=== PATIENT | female | born 1970 ===

== ENCOUNTER 2017-01-18 11:00 | Emergency (ER) | payer OTHER ==
[2017-01-18 11:01] VITALS: BMI 43.0
[2017-01-18 11:13] VITALS: RESP 18; O2SAT 100
--- NOTE | 2017-01-18 11:27 | ED PDOC ---
Arrival/HPI - General Chief Complaint: Lower Extremity Problem/Injury Time Seen by Provider: 01/18/17 11:16 Historian: Patient - History of Present Illness Narrative History of Present Illness (Text): 01/18/17 11:16 46 y/o female, pmh including hyperlipidemia, allergic to percocet, c/o lt. leg pain started again today. Pt. stated that she has chronic lt. knee and leg pain , more painful on the lt. knee/calf today, no numbness or tingling, no fever or chills, no headache or night sweat, no numbness or tingling, no other medical or psychological complaints. Past Medical History - Provider Review Nursing Documentation Reviewed: Yes - Tetanus Immunization Tetanus Immunization: Unknown - Past Medical History Past Medical History: No Previous - Cardiac Hx Peripheral Edema: Yes (06-29-13) - Pulmonary Hx Respiratory Disorders: No - Neurological Hx Transient Ischemic Attacks (TIA): Yes (2012) - HEENT Hx HEENT Disorder: (WEARS RX reading GLASSES) - Musculoskeletal/Rheumatological Other/Comment: Knee pain - Gastrointestinal Hx Gastrointestinal Disorders: Yes Hx Gall Bladder Disease: Yes (CHOLECYSTECTOMY) - Genitourinary/Gynecological Hx Genitourinary Disorders: Yes (CEASEREAN SECTION X 1,LUMPS TO BILATERAL BREAST ) - Psychiatric Hx Depression: No Hx Emotional Abuse: No Hx Physical Abuse: No Hx Substance Use: No - Surgical History Hx Section: Yes Hx Cholecystectomy: Yes - Anesthesia Hx Anesthesia: Yes Hx Anesthesia Reactions: No Hx Malignant Hyperthermia: No - Suicidal Assessment Feels Threatened In Home Enviroment: No Family/Social History - Physician Review Nursing Documentation Reviewed: Yes Family/Social History: Unknown Family HX Smoking Status: Never Smoked Hx Alcohol Use: No Hx Substance Use: No Hx Substance Use Treatment: No Allergies/Home Meds Allergies/Adverse Reactions: Allergies acetaminophen [From Percocet] Adverse Reaction (Verified 01/18/17 11:09) RASH oxycodone [From Percocet] Adverse Reaction (Verified 01/18/17 11:09) RASH Home Medications: Home Meds Medication Instructions Recorded Confirmed Amoxicillin/Clavulanate [Augmentin 1 tab PO BID 01/18/17 01/18/17 875 MG-125 MG Tab] Ergocalciferol (Vitamin D2) 2,000 unit PO DAILY 06/11/17 06/11/17 [Vitamin D2] Fenofibrate [Tricor] 145 mg PO QPM 01/18/17 01/18/17 Pregabalin [Lyrica] 50 mg PO HS 01/18/17 01/18/17 Review of Systems - Review of Systems Constitutional: absent: Fatigue, Fevers Eyes: absent: Vision Changes ENT: absent: Hearing Changes Respiratory: absent: SOB, Cough Cardiovascular: absent: Chest Pain Gastrointestinal: absent: Abdominal Pain, Nausea, Vomiting Musculoskeletal: Arthralgias. absent: Back Pain, Neck Pain, Joint Swelling Skin: absent: Rash, Pruritis, Skin Lesions Psychiatric: absent: Anxiety, Depression, Suicidal Ideation Physical Exam Vital Signs Reviewed: Yes Vital Signs Temp Pulse Resp BP Pulse Ox 01/18/17 12:24 98.0 F 79 18 110/69 100 01/18/17 11:12 98.3 F 86 18 112/74 100 Temperature: Afebrile Blood Pressure: Normal Pulse: Regular Respiratory Rate: Normal Appearance: Positive for: Well-Appearing, Non-Toxic, Comfortable Pain Distress: None Mental Status: Positive for: Alert and Oriented X 3 - Systems Exam Head: Present: Atraumatic, Normocephalic Pupils: Present: PERRL Extroacular Muscles: Present: EOMI Conjunctiva: Present: Normal Mouth: Present: Moist Mucous Membranes Neck: Present: Normal Range of Motion Respiratory/Chest: Present: Clear to Auscultation, Good Air Exchange. No: Respiratory Distress, Accessory Muscle Use Cardiovascular: Present: Regular Rate and Rhythm, Normal S1, S2. No: Murmurs Abdomen: Present: Normal Bowel Sounds. No: Tenderness, Distention, Peritoneal Signs Back: Present: Normal Inspection, Other (Thoracic to LS spine: no midline tenderness or step off, FROM without limitation, sensation intact, motor 5/5, ) . No: CVA Tenderness, Midline Tenderness, Paraspinal Tenderness, Pain with Leg Raise, Decubitus Ulcer Upper Extremity: Present: Normal Inspection. No: Cyanosis, Edema Lower Extremity: Present: Normal Inspection, Other (LLE: +ttp on the posterior knee and calf region, no erythematous or insect bite, FROM without limitation, sensation intact, motor 5/5, +DPPT pulses, capillary refill< 2 seconds, neurovascular intact. ). No: Edema Neurological: Present: GCS=15, CN II-XII Intact, Speech Normal Skin: Present: Warm, Dry, Normal Color. No: Rashes Psychiatric: Present: Alert, Oriented x 3, Normal Insight, Normal Concentration Medical Decision Making ED Course and Treatment: 01/18/17 11:34 -toradol IM -LLE venuous doppler show no DVT/cyst -Lt. knee xray: +degnerative changes, no fracture or dislocation -Lonny wrap applied with neurovascular intact -Discharge home with celebrex, lonny wrap, crutches, bed rest, follow up with your own pmd and orthopedic within 2 days, return to the ER for any new or worsening signs or symptoms. - RAD Interpretation Radiology Orders: 01/18/17 11:28 DUPLEX LOWER EXTRM VEIN LEFT [US] Stat 01/18/17 11:29 KNEE WITH PATELLA LEFT 3 VIEW [RAD] Stat Lt. knee xray: no acute findings. LLE Venuous Doppler: as per preliminary report, there is no acute DVT [employer]er: Radiologist - Medication Orders Current Medication Orders: Discontinued Medications Diazepam (Valium) 5 mg PO ONCE ONE PRN Reason: Protocol Stop: 01/18/17 11:29 Last Admin: 01/18/17 12:30 Dose: 5 mg Ketorolac Tromethamine (Toradol) 60 mg IM STAT STA Stop: 01/18/17 11:29 Last Admin: 01/18/17 12:30 Dose: 60 mg - PA / HOPPER FILLER / Resident Statement / has reviewed & agrees with the documentation as recorded. Disposition/Present on Arrival - Present on Arrival Any Indicators Present on Arrival: No History of DVT/PE: No History of Uncontrolled Diabetes: No Urinary Catheter: No History of Decub. Ulcer: No History Surgical Site Infection Following: None - Disposition Have Diagnosis and Disposition been Completed?: Yes Diagnosis: Knee pain, Leg pain, Osteoarthritis Disposition: HOME/ ROUTINE Disposition Time: 11:36 Patient Plan: Discharge Condition: GOOD Additional Instructions: Discharge home with celebrex, lonny wrap, crutches, bed rest, follow up with your own pmd and orthopedic within 2 days, return to the ER for any new or worsening signs or symptoms. Prescriptions: Celecoxib [CeleBREX] 200 mg PO DAILY PRN #14 cap PRN Reason: Other Referrals: Trisha Ibrahim DO [Primary Care Provider] - Follow up with primary Hussein Del Cid MD [Staff Provider] - Follow up with primary Forms: WORK NOTE
[2017-01-18 12:24] VITALS: BP 110/69; PULSE 79; TEMP 98
--- NOTE | 2017-01-18 12:37 | RAD ---
PROCEDURE: Left Knee Radiographs. HISTORY: Pain. No history of recent/ related trauma provided COMPARISON: None. FINDINGS: BONES: No acute fracture. JOINTS: Mild Medial compartment narrowing. JOINT EFFUSION: None. OTHER FINDINGS: None. IMPRESSION: No acute findings related to/accounting for the clinical presentation. Concordant results with the preliminary interpretation rendered by the emergency department physician procedure.
--- NOTE | 2017-01-18 13:28 | US ---
PROCEDURE: Left lower extremity venous US HISTORY: Leg pain and swelling. Evaluate for DVT. PHYSICIAN(S): Hunter Hogue MD. TECHNIQUE: Duplex sonography and color-flow Doppler with graded compression were used to evaluate the deep venous system of the left lower extremity. FINDINGS: The visualized deep venous system of the left lower extremity is sonographically normal and compressible. Normal wave forms and augmentation are seen. There is no sonographic evidence for deep venous thrombosis in the visualized segments of the left lower extremity. IMPRESSION: 1. No sonographic evidence for deep venous thrombosis in the visualized segments of the left lower extremity.
== END 2017-01-18 12:43 | disposition home or self-care (01) ==
LOC: ED 11:00
DX: M25.562 Pain in left knee (principal); M79.605 Pain in left leg; M19.90 Unspecified osteoarthritis, unspecified site
CPT/HCPCS: 73562; 93971; 96372; 99284; J1885

== ENCOUNTER 2018-02-21 12:58 | Emergency (ER) | payer OTHER ==
[2018-02-21 13:14] VITALS: RESP 18; O2SAT 99; BMI 41.8
[2018-02-21] MEDS ORDERED: HYDROmorphone 0.5 mg/0.5 ml ISec IM STA (13:41)
--- NOTE | 2018-02-21 13:48 | ED PDOC ---
Arrival/HPI - General Chief Complaint: Back Pain Time Seen by Provider: 02/21/18 13:36 Historian: Patient - History of Present Illness Narrative History of Present Illness (Text): 02/21/18 13:49 47 y/o female, whose PMH includes TIA and peripheral edema, who presents to the emergency department complaining of mid-back that radiates to right thigh. Patient reports having an epidural shot last week and today when exercising, the pain became worse. Patient notes having numbness to the right toe and having an MRI in the past. Patient denies fall, trauma, chest pain, shortness of breath, headache, fever, chills, cough, bowel or bladder incontinence/ retention, saddle anesthesia, paresthesias, focal weakness, sensory deficit, gait dysfunction, hematuria or dysuria. Additionally, she notes taking medication Lyrica and Bai 2 inhibitor, with no significant relief. Symptom Onset: Gradual Symptom Course: Unchanged Activities at Onset: Light Past Medical History - Provider Review Nursing Documentation Reviewed: Yes - Infectious Disease Hx of Infectious Diseases: None - Tetanus Immunization Tetanus Immunization: Unknown - Past Medical History Past Medical History: No Previous - Cardiac Hx Peripheral Edema: Yes (06-29-13) - Pulmonary Hx Respiratory Disorders: No - Neurological Hx Transient Ischemic Attacks (TIA): Yes (2012) - HEENT Hx HEENT Disorder: (WEARS RX reading GLASSES) - Musculoskeletal/Rheumatological Other/Comment: Knee pain - Gastrointestinal Hx Gastrointestinal Disorders: Yes Hx Gall Bladder Disease: Yes (CHOLECYSTECTOMY) - Genitourinary/Gynecological Hx Genitourinary Disorders: Yes (CEASEREAN SECTION X 1,LUMPS TO BILATERAL BREAST ) - Psychiatric Hx Depression: No Hx Emotional Abuse: No Hx Physical Abuse: No Hx Substance Use: No - Surgical History Hx Section: Yes Hx Cholecystectomy: Yes - Anesthesia Hx Anesthesia: Yes Hx Anesthesia Reactions: No Hx Malignant Hyperthermia: No - Suicidal Assessment Feels Threatened In Home Enviroment: No Family/Social History - Physician Review Nursing Documentation Reviewed: Yes Family/Social History: Unknown Family HX Smoking Status: Never Smoked Hx Alcohol Use: No Hx Substance Use: No Hx Substance Use Treatment: No Allergies/Home Meds Allergies/Adverse Reactions: Allergies acetaminophen [From Percocet] Adverse Reaction (Verified 02/21/18 13:14) RASH oxycodone [From Percocet] Adverse Reaction (Verified 02/21/18 13:14) RASH Home Medications: Home Meds Medication Instructions Recorded Confirmed Amoxicillin/Clavulanate [Augmentin 1 tab PO BID 01/18/17 01/18/17 875 MG-125 MG Tab] Ergocalciferol (Vitamin D2) 2,000 unit PO DAILY 01/18/17 01/18/17 [Vitamin D2] Fenofibrate [Tricor] 145 mg PO QPM 01/18/17 01/18/17 Pregabalin [Lyrica] 50 mg PO HS 01/18/17 01/18/17 Review of Systems - Review of Systems Constitutional: absent: Fevers ENT: absent: Sinus Congestion Respiratory: absent: SOB Cardiovascular: absent: Chest Pain Gastrointestinal: absent: Abdominal Pain Genitourinary Female: absent: Dysuria, Hematuria Musculoskeletal: Back Pain (mid back radiating to right thigh ) Neurological: absent: Headache Endocrine: absent: Diaphoresis Hemo/Lymphatic: absent: Adenopathy Physical Exam Vital Signs Reviewed: Yes Vital Signs Temp Pulse Resp BP Pulse Ox 02/21/18 13:08 98.4 F 76 18 131/81 99 Temperature: Afebrile Blood Pressure: Normal Pulse: Regular Respiratory Rate: Normal Appearance: Positive for: Well-Appearing, Non-Toxic, Uncomfortable (mild ). No : Comfortable Pain Distress: None Mental Status: Positive for: Alert and Oriented X 3 - Systems Exam Head: Present: Atraumatic, Normocephalic Pupils: Present: PERRL Extroacular Muscles: Present: EOMI Conjunctiva: Present: Normal Respiratory/Chest: Present: Clear to Auscultation, Good Air Exchange. No: Respiratory Distress, Accessory Muscle Use, Wheezes, Decreased Breath Sounds, Rales, Retracting, Rhonchi Cardiovascular: Present: Regular Rate and Rhythm, Normal S1, S2. No: Murmurs Abdomen: Present: Normal Bowel Sounds. No: Tenderness, Distention, Peritoneal Signs, Rebound, Guarding Back: Present: Midline Tenderness (diffused midline tenderness not on injeciton site and no erythema). No: CVA Tenderness Lower Extremity: Present: Normal Inspection, NORMAL PULSES, Normal ROM, Neurovascularly Intact, Capillary Refill < 2 s, Other (motor strength 5/5). No : Edema, Cyanosis, Pippa's Sign, Tenderness, Swelling, Erythema, Deformity Neurological: Present: GCS=15, CN II-XII Intact, Speech Normal, Motor Func Grossly Intact, Normal Sensory Function, Normal Cerebellar Funct Skin: Present: Warm, Dry, Normal Color. No: Rashes Psychiatric: Present: Alert, Oriented x 3, Normal Insight, Normal Concentration Medical Decision Making ED Course and Treatment: 02/21/18 Impression: 47 y/o female with midline tenderness in back with no erythema on injection site complaining of mid back pain radiating to lower extremities. Plan: -- Dilaudid, Toradol, and Prednisone -- Reassess and disposition Progress Notes: - Medication Orders Current Medication Orders: Discontinued Medications Hydromorphone HCl (Dilaudid) 0.5 mg IM STAT STA Stop: 02/21/18 13:42 Last Admin: 02/21/18 14:13 Dose: 0.5 mg MAR Pain Assessment Document 02/21/18 14:13 LA (Rec: 02/21/18 14:14 [id number] Pain Reassessment Is this a pain reassessment? No Sleep Is patient sleeping during reassessment? No Presence of Pain Presence of Pain Yes Pain Scale Used Pain Scale Used Numeric Location Upper or Lower Lower Pain Location Body Site Back Description Intensity of Pain at present 9 IM Administration Charges Document 02/21/18 14:13 LA (Rec: 02/21/18 14:14 [place] [id number] Injection Site MAR Injection Site Right Arm Charges for Administration # of IM Administrations 1 Ketorolac Tromethamine (Toradol) 30 mg IM STAT STA Stop: 02/21/18 13:42 Last Admin: 02/21/18 14:12 Dose: 30 mg MAR Pain Assessment Document 02/21/18 14:12 LA (Rec: 02/21/18 14:13 LA [id number] Pain Reassessment Is this a pain reassessment? Yes Sleep Is patient sleeping during reassessment? No Presence of Pain Presence of Pain Yes Description Intensity of Pain at present 9 IM Administration Charges Document 02/21/18 14:12 LA (Rec: 02/21/18 14:13 LA [id number] Injection Site MAR Injection Site Left Arm Charges for Administration # of IM Administrations 1 Prednisone (Prednisone Tab) 60 mg PO STAT ONE Stop: 02/21/18 13:43 Last Admin: 02/21/18 14:13 Dose: 60 mg - PA / MEAT PASSER / Resident Statement MD/DO has examined the patient and agrees with the treatment plan. - Scribe Statement The provider has reviewed the documentation as recorded by the Parrish Sal Provider Parrish Attestation: All medical record entries made by the Sylvesteribe were at my direction and personally dictated by me. I have reviewed the chart and agree that the record accurately reflects my personal performance of the history, physical exam, medical decision making, and the department course for this patient. I have also personally directed, reviewed, and agree with the discharge instructions and disposition. Disposition/Present on Arrival - Present on Arrival Any Indicators Present on Arrival: No History of DVT/PE: No History of Uncontrolled Diabetes: No Urinary Catheter: No History of Decub. Ulcer: No History Surgical Site Infection Following: None - Disposition Have Diagnosis and Disposition been Completed?: Yes Diagnosis: Radiculopathy of lumbar region Disposition: HOME/ ROUTINE Disposition Time: 14:38 Patient Plan: Discharge Patient Problems: Current Active Problems Problem Status Onset Radiculopathy of lumbar region Acute Condition: IMPROVED Discharge Instructions (ExitCare): Radiculopathy (DC) Prescriptions: Methylprednisolone [Medrol Dose Pack (21 tabs)] 4 mg PO DAILY #21 mg Referrals: Sara Donaldson MD [Primary Care Provider] - Follow up with primary Forms: [employer] (Cook Islander)
[2018-02-21 15:17] VITALS: BP 120/75; PULSE 73; TEMP 98.5
== END 2018-02-21 15:16 | disposition home or self-care (01) ==
LOC: ED 12:58
DX: M54.16 Radiculopathy, lumbar region (principal)
CPT/HCPCS: 96372; 99283; J1170; J1885

== ENCOUNTER 2018-03-05 19:50 | Emergency (ER) | payer OTHER ==
[2018-03-05 19:50] VITALS: BMI 41.8
--- NOTE | 2018-03-05 20:30 | ED PDOC ---
Arrival/HPI - General Chief Complaint: Hip Pain Time Seen by Provider: 03/05/18 19:58 Historian: Patient - History of Present Illness Narrative History of Present Illness (Text): 03/05/18 20:27 A 47 year old female who presents to the emergency room with a complaint of buttock/lower extremity pain s/p slip and fall this evening. Patient states that she went into a store, slipped on a wet floor and fell backwards onto her buttock and lower back. Patient denies any head or neck trauma. She notes that the pain radiates down both lower extremities. The patient denies fevers, chills , headache, dizziness, sore throat, cough, chest pain, shortness of breath, dyspnea on exertion, abdominal pain, nausea, vomiting, diarrhea, neck pain, urinary/bowel changes or any other complaint. Time/Duration: Prior to Arrival Symptom Onset: Sudden Symptom Course: Unchanged Activities at Onset: Rest, Light Context: Other (Store) Associated Symptoms (Text): 03/05/18 21:32 Slip and fall backwards on a wet floor in a store just prior to arrival injuring her buttocks and lower back. No head trauma. Pain appears to be out of proportion to her injuries on exam. Past Medical History - Provider Review Nursing Documentation Reviewed: Yes - Infectious Disease Hx of Infectious Diseases: None - Tetanus Immunization Tetanus Immunization: Unknown - Past Medical History Past Medical History: No Previous - Cardiac Hx Cardiac Disorders: Yes Hx Peripheral Edema: Yes - Pulmonary Hx Respiratory Disorders: No - Neurological Hx Neurological Disorder: Yes Hx Transient Ischemic Attacks (TIA): Yes (2012) - HEENT Hx HEENT Disorder: (WEARS RX reading GLASSES) - Renal Hx Renal Disorder: No - Endocrine/Metabolic Hx Endocrine Disorders: No - Hematological/Oncological Hx Blood Disorders: No - Integumentary Hx Dermatological Disorder: No - Musculoskeletal/Rheumatological Hx Musculoskeletal Disorders: Yes Other/Comment: Knee pain - Gastrointestinal Hx Gastrointestinal Disorders: Yes Hx Gall Bladder Disease: Yes (CHOLECYSTECTOMY) - Genitourinary/Gynecological Hx Genitourinary Disorders: Yes (CEASEREAN SECTION X 1,LUMPS TO BILATERAL BREAST ) - Psychiatric Hx Depression: No Hx Emotional Abuse: No Hx Physical Abuse: No Hx Substance Use: No - Surgical History Hx Section: Yes Hx Cholecystectomy: Yes - Anesthesia Hx Anesthesia: Yes Hx Anesthesia Reactions: No Hx Malignant Hyperthermia: No - Suicidal Assessment Feels Threatened In Home Enviroment: No Family/Social History - Physician Review Nursing Documentation Reviewed: Yes Family/Social History: No Known Family HX Smoking Status: Never Smoked Hx Alcohol Use: No Hx Substance Use: No Hx Substance Use Treatment: No Allergies/Home Meds Allergies/Adverse Reactions: Allergies acetaminophen [From Percocet] Adverse Reaction (Verified 03/05/18 20:06) RASH oxycodone [From Percocet] Adverse Reaction (Verified 03/05/18 20:06) RASH Home Medications: Home Meds Medication Instructions Recorded Confirmed Amoxicillin/Clavulanate [Augmentin 1 tab PO BID 01/18/17 01/18/17 875 MG-125 MG Tab] Ergocalciferol (Vitamin D2) 2,000 unit PO DAILY 01/18/17 01/18/17 [Vitamin D2] Fenofibrate [Tricor] 145 mg PO QPM 01/18/17 01/18/17 Pregabalin [Lyrica] 50 mg PO HS 01/18/17 01/18/17 Review of Systems - Physician Review All systems were reviewed & negative as marked: Yes - Review of Systems Constitutional: absent: Fevers, Night Sweats Respiratory: absent: SOB, Cough Cardiovascular: absent: Chest Pain, LIMA Gastrointestinal: absent: Abdominal Pain, Stool Changes, Diarrhea, Nausea, Vomiting Genitourinary Female: absent: Urine Output Changes Musculoskeletal: Back Pain (Lower back/extremity pain s/p fall). absent: Neck Pain Neurological: absent: Headache, Dizziness Physical Exam Vital Signs Reviewed: Yes Vital Signs Temp Pulse Resp BP Pulse Ox 03/05/18 22:12 98.5 F 68 18 113/69 100 03/05/18 21:34 98.5 F 71 20 114/73 95 03/05/18 20:07 98.5 F 68 19 120/74 98 Temperature: Afebrile Blood Pressure: Normal Pulse: Regular Respiratory Rate: Normal Appearance: Positive for: Non-Toxic, Uncomfortable, Other (Patient crying uncontrollably, obese.) Pain Distress: Severe Mental Status: Positive for: Alert and Oriented X 3 - Systems Exam Head: Present: Atraumatic, Normocephalic Pupils: Present: PERRL Extroacular Muscles: Present: EOMI Conjunctiva: Present: Normal Mouth: Present: Moist Mucous Membranes Neck: Present: Normal Range of Motion. No: MIDLINE TENDERNESS, Paraspinal Tenderness Respiratory/Chest: Present: Clear to Auscultation, Good Air Exchange. No: Respiratory Distress, Accessory Muscle Use Cardiovascular: Present: Regular Rate and Rhythm, Normal S1, S2. No: Murmurs Abdomen: No: Tenderness, Distention, Peritoneal Signs Back: Present: Normal Inspection, Paraspinal Tenderness (Bilateral lumbar paraspinous tenderness. Pain with any range of motion of the lower back or bilateral lower extremities). No: CVA Tenderness, Midline Tenderness Upper Extremity: Present: Normal Inspection. No: Cyanosis, Edema Lower Extremity: Present: Tenderness (Severe pain on palpation of both lower extremities. Severe bilateral lumbar spine and buttock tenderness. No mid/upper back tenderness. ). No: Normal ROM (Severe pain with movement of both lower extremities. ) Neurological: Present: GCS=15, CN II-XII Intact, Speech Normal, Motor Func Grossly Intact Skin: Present: Warm, Dry, Normal Color. No: Rashes Psychiatric: Present: Alert, Oriented x 3, Normal Insight, Normal Concentration Medical Decision Making ED Course and Treatment: 03/05/18 20:32 Impression: A 47 year old female presents to the emergency room complaining of lower extremity pain s/p slip and fall this evening in store. Plan: -- LS Spine and Pelvic X-Ray -- Toradol -- Reassess and disposition Progress Notes: 03/05/18 21:41 Pain mildly improved with Toradol. 03/05/18 21:58 Patient is requesting Tylenol 3 for her pain. - RAD Interpretation Radiology Orders: 03/05/18 20:24 PELVIS ONE VIEW [RAD] Stat 03/05/18 20:25 LS SPINE WITH OBL > 18 YRS OLD [RAD] Stat Pelvis one view shows no fracture or dislocation. Lumbosacral spine 5 views shows no fracture or dislocation. Molder Feeder: ED Physician - Medication Orders Current Medication Orders: Discontinued Medications Ketorolac Tromethamine (Toradol) 60 mg IM ONCE ONE Stop: 03/05/18 20:25 Last Admin: 03/05/18 20:39 Dose: 60 mg BANNER Pain Assessment Document 03/05/18 20:39 LA (Rec: 03/05/18 20:40 LA [id number]) Pain Reassessment Is this a pain reassessment? No Sleep Is patient sleeping during reassessment? No Presence of Pain Presence of Pain Yes Pain Scale Used Pain Scale Used Numeric Location Left, Right or Bilateral Bilateral Pain Location Body Site Hip Description Description Constant Intensity of Pain at present 8 IM Administration Charges Document 03/05/18 20:39 [facility] (Rec: 03/05/18 20:40 LA [id number]) Injection Site MAR Injection Site Left Gluteus Brady Charges for Administration # of IM Administrations 1 - Scribe Statement The provider has reviewed the documentation as recorded by the Scribe Jessica Tran Provider Scribe Attestation: All medical record entries made by the Scribe were at my direction and personally dictated by me. I have reviewed the chart and agree that the record accurately reflects my personal performance of the history, physical exam, medical decision making, and the department course for this patient. I have also personally directed, reviewed, and agree with the discharge instructions and disposition. Disposition/Present on Arrival - Present on Arrival Any Indicators Present on Arrival: No History of DVT/PE: No History of Uncontrolled Diabetes: No Urinary Catheter: No History of Decub. Ulcer: No History Surgical Site Infection Following: None - Disposition Have Diagnosis and Disposition been Completed?: Yes Diagnosis: Chronic back pain, Back contusion, Contusion, buttock Disposition: HOME/ ROUTINE Disposition Time: 21:39 Patient Plan: Discharge Condition: IMPROVED Discharge Instructions (ExitCare): Chronic Pain (DC), Low Back Pain (DC), Contusion (DC) Additional Instructions: Rest and ice. Follow-up with PMD. Follow up in ER as needed. Prescriptions: oxyCODONE/Acetaminophen [Percocet 5/325 mg Tab] 1 ea PO Q6 #15 tab Acetaminophen with Codeine [Tylenol with Codeine #3 Tablet] 1 each PO Q6 #20 tablet Referrals: Sara Donaldson MD [Primary Care Provider] - Follow up with primary Forms: [employer] (Irish)
[2018-03-05 21:35] VITALS: TEMP 98.5
[2018-03-05 22:12] VITALS: BP 113/69; PULSE 68; RESP 18; O2SAT 100
--- NOTE | 2018-03-06 10:22 | RAD ---
Date of service: 03/05/2018 PROCEDURE: Radiographs of the pelvis. HISTORY: trauma COMPARISON: None. FINDINGS: BONES: Pelvic Bones: Unremarkable. Hips: Grossly unremarkable. JOINTS: Sacroiliac Joints: Unremarkable. Pubic Symphysis: Unremarkable. OTHER FINDINGS: None. IMPRESSION: Unremarkable radiographs of the pelvis.
--- NOTE | 2018-03-06 10:23 | RAD ---
Date of service: 03/05/2018 PROCEDURE: Radiographs of the Lumbar Spine. HISTORY: trauma COMPARISON: No prior. FINDINGS: BONES: Normal alignment. No listhesis. No fracture. DISC SPACES: Unremarkable. OTHER FINDINGS: None. IMPRESSION: No acute findings related to/accounting for the clinical presentation.
== END 2018-03-05 22:12 | disposition home or self-care (01) ==
LOC: ED 19:50
DX: S30.0XXA Contusion of lower back and pelvis, initial encounter (principal); W01.0XXA Fall on same level from slipping, tripping and stumbling without subsequent striking against object, initial encounter; Y92.512 Supermarket, store or market as the place of occurrence of the external cause; M54.5 Low back pain; G89.29 Other chronic pain
CPT/HCPCS: 72110; 72170; 96372; 99284; J1885

== ENCOUNTER 2018-09-13 12:17 | Outpatient (CLI) | payer OTHER | END 2018-09-13 12:18 | disposition home or self-care (01) | LOC: RAD 12:17 ==

== ENCOUNTER 2018-10-09 06:20 | Inpatient (IN) | payer OTHER ==
--- NOTE | 2018-10-09 07:32 | ED PDOC ---
Arrival/HPI - General Chief Complaint: Abdominal Pain Time Seen by Provider: 10/09/18 06:58 Historian: Patient - History of Present Illness Narrative History of Present Illness (Text): 10/09/18 07:32 A 48 year old female, whose past medical history includes gastric sleeve surgery (2 weeks ago), presents to the emergency department complaining of LUQ pain starting yesterday. Patient reports 1 hour [employer], she was at the [facility] ER for the abdominal pain (to which she assumed it was caused by heavy lifting), and had CT Abd/Pelvis performed. results showed she has a large pancreatitis, and she was going to be transferred to [facility], however instead she decided to come to [facility] ER. Patient notes also currently experiencing chest pain (starting here upon arrival to the ER), however denies any other complaints at this time. Denies any history of EtOH consumption or smoking. Denies any medical history of diabetes or hypertension. States she only takes medication for her back. Also, patient mentions post-gastric sleeve surgery, she remained in the ICU for observation, as she was told her heart rate is slow. Past Medical History - Provider Review Nursing Documentation Reviewed: Yes - Infectious Disease Hx of Infectious Diseases: None - Tetanus Immunization Tetanus Immunization: Unknown - Past Medical History Past Medical History: No Previous - Cardiac Hx Cardiac Disorders: Yes Hx Peripheral Edema: Yes - Pulmonary Hx Respiratory Disorders: No - Neurological Hx Neurological Disorder: Yes Hx Transient Ischemic Attacks (TIA): Yes (2012) - HEENT Hx HEENT Disorder: (WEARS RX reading GLASSES) - Renal Hx Renal Disorder: No - Endocrine/Metabolic Hx Endocrine Disorders: No - Hematological/Oncological Hx Blood Disorders: No - Integumentary Hx Dermatological Disorder: No - Musculoskeletal/Rheumatological Hx Musculoskeletal Disorders: Yes Other/Comment: Knee pain - Gastrointestinal Hx Gastrointestinal Disorders: Yes Hx Gall Bladder Disease: Yes (CHOLECYSTECTOMY) - Genitourinary/Gynecological Hx Genitourinary Disorders: Yes (CEASEREAN SECTION X 1,LUMPS TO BILATERAL BREAST) - Psychiatric Hx Substance Use: No - Surgical History Hx Section: Yes Hx Cholecystectomy: Yes Other/Comment: gastric sleeve 2 weeks ago - Anesthesia Hx Anesthesia: Yes Hx Anesthesia Reactions: No Hx Malignant Hyperthermia: No - Suicidal Assessment Feels Threatened In Home Enviroment: No Family/Social History - Physician Review Nursing Documentation Reviewed: Yes Family/Social History: No Known Family HX Smoking Status: Never Smoked Hx Alcohol Use: No Hx Substance Use: No Hx Substance Use Treatment: No Allergies/Home Meds Allergies/Adverse Reactions: Allergies gabapentin Allergy (Verified 10/09/18 07:13) RASH acetaminophen [From Percocet] Adverse Reaction (Verified 03/05/18 20:06) RASH oxycodone [From Percocet] Adverse Reaction (Verified 03/05/18 20:06) RASH Home Medications: Home Meds Medication Instructions Recorded Confirmed Amoxicillin/Clavulanate [Augmentin 1 tab PO BID 01/18/17 01/18/17 875 MG-125 MG Tab] Ergocalciferol (Vitamin D2) 2,000 unit PO DAILY 01/18/17 01/18/17 [Vitamin D2] Fenofibrate [Tricor] 145 mg PO QPM 01/18/17 01/18/17 Pregabalin [Lyrica] 50 mg PO HS 01/18/17 01/18/17 Review of Systems - Physician Review All systems were reviewed & negative as marked: Yes - Review of Systems Constitutional: absent: Fevers, Night Sweats Cardiovascular: Chest Pain (began in ER) Gastrointestinal: Abdominal Pain (LUQ region). absent: Diarrhea, Nausea, Vomiting Physical Exam Pain Distress: Mild Mental Status: Positive for: Alert and Oriented X 3 - Systems Exam Head: Present: Atraumatic, Normocephalic Pupils: Present: PERRL Extroacular Muscles: Present: EOMI Conjunctiva: Present: Normal Mouth: Present: Moist Mucous Membranes Respiratory/Chest: Present: Clear to Auscultation, Good Air Exchange. No: Respiratory Distress, Accessory Muscle Use Cardiovascular: Present: Regular Rate and Rhythm, Normal S1, S2. No: Murmurs Abdomen: Present: Tenderness (LUQ region). No: Distention, Peritoneal Signs Upper Extremity: Present: Normal Inspection. No: Cyanosis, Edema Lower Extremity: Present: Normal Inspection. No: Edema Neurological: Present: GCS=15, CN II-XII Intact, Speech Normal Skin: Present: Warm, Dry, Normal Color. No: Rashes Psychiatric: Present: Alert, Oriented x 3, Normal Insight, Normal Concentration Medical Decision Making ED Course and Treatment: 10/09/18 07:32 Impression 48 year old female with LUQ pain since yesterday, and chest pain starting in the ER. Physical exam shows LUQ tenderness. Plan: -- EKG -- Chest X-ray -- Labs -- Reassess and disposition Progress Notes: EKG: Ordered, reviewed, and independently interpreted the EKG. Rate : 48 BPM Rhythm : Sinus bradycardia. Interpretation : No ST-segment elevations or depressions, no T-wave inversions, normal intervals. Comparison : No previous EKG for comparison. 10/09/18 08:00 Case endorsed to /pending labs /CXR/reasses/final disposition - Scribe Statement The provider has reviewed the documentation as recorded by the Scribe Amparo Bermeo Provider Scribe Attestation: All medical record entries made by the Scribe were at my direction and personally dictated by me. I have reviewed the chart and agree that the record accurately reflects my personal performance of the history, physical exam, medical decision making, and the department course for this patient. I have also personally directed, reviewed, and agree with the discharge instructions and disposition. Disposition/Present on Arrival - Present on Arrival Any Indicators Present on Arrival: No History of DVT/PE: No History of Uncontrolled Diabetes: No Urinary Catheter: No History of Decub. Ulcer: No History Surgical Site Infection Following: None - Disposition Have Diagnosis and Disposition been Completed?: No Diagnosis: Abdominal pain, Chest pain Disposition Time: 08:00 Condition: STABLE Discharge Instructions (ExitCare): Chest Pain (ED) Forms: [employer] (Czech)
[2018-10-09] MEDS: Sodium Chloride 0.9% 1,000 ML IV SCH ×2 (07:51→18:04)
[2018-10-09 08:04] LABS: HEMOGLOBIN 11.3 g/dL (12.0-16.0); MEAN CELL VOLUME 86.3 fl (80.0-105.0); MEAN CORPUSCULAR HEMOGLOBIN 27.1 pg (25.0-35.0); MEAN CORPUSCULAR HGB CONC 31.4 g/dl (31.0-37.0); MEAN PLATELET VOLUME 10.9 fl (7.0-11.0); RBC 4.17 {null, 10^6/uL} (3.5-6.1); RED CELL DISTRIBUTION WIDTH 13.8 % (11.5-14.5); WHITE BLOOD COUNT 5.2 {null, 10^3/uL} (4.5-11.0)
[2018-10-09 08:06] LABS: INR 1.15; PARTIAL THROMBOPLASTIN TIME 31.1 Seconds (26.9-38.3)
[2018-10-09 08:09] LABS: ALB/GLOB RATIO 1.2 (1.1-1.8); ALBUMIN 3.4 g/dL (3.0-4.8); ALT/SGPT 68 U/L (7-56); AST/SGOT 67 U/L (14-36); BLOOD UREA NITROGEN 7 mg/dL (7-21); CALCIUM 8.3 mg/dL (8.4-10.5); GFR NON-AFRICAN AMERICAN > 60; LIPASE 812 U/L (23-300)
--- NOTE | 2018-10-09 08:12 | ED PDOC ---
Physical Exam Vital Signs Temp Pulse Resp BP Pulse Ox 10/09/18 06:21 97.9 F 51 L 18 110/61 98 Medical Decision Making ED Course and Treatment: 10/09/18 08:00 Case endorsed to me by Dr. Bello. Patient was transferred from outside facility with report of history of pancreatitis. States 2 weeks ago, patient had gastric sleeve surgery performed. Yesterday afternoon, patient states she developed left-side abdominal pain radiating to chest region after lifting something heavy at home. Pain is constant. Associated with nausea. Went to outside facility at 11:00 PM last night. Reports CT Abd/Pelvis performed and diagnosed with pancreatitis. Current pain has improved after morphine given yesterday from outside facility. Patient is currently resting comfortably here in the ER. Heart rate current 50 BPM and regular rhythm. Patient denies any dizziness/lightheadedness at this time. Currently awaiting CT report to be sent from outside facility. Patient will be admitted to telemetry as pain radiates to chest and is bradycardic. Patient currently not hypotensive. PMD is Dr. Ibrahim. 10/09/18 08:45 CT Abd/Pelvis report faxed from [facility] ER: 10/08/2018 02:18 Abd/Pelvis CT with IV and PO contrast IMPRESSION: 1. No evidence of pancreatic infiltration. Please note that mild peritendinous may not be visible on CT. 2. Mosaic pattern of enhancement of the liver parenchyma. Exact etiology is indeterminate. Potential differental may include transient perfusion anomaly of liver versus hepatic inflammation. Limited assessment of the hepatic veins and portal vein due to multiple mixing of contrast, likely related to bolus timing, but it appear grossly patent. Please correlate with any referable symptoms and liver function test for correspondence. 3. Status post gastric sleeve procedure. No bowel obstruction. Normal appendix. 4. Moderate dilatation of the common bile duct and mild intrahepatic biliary duct dilatation. The degree of biliary ductal dilatation appears mildly greater than expected for post cholecystectomy changes, although it may still represent post surgical change. Correlate with liver function test. Dictator: Richard Calderon 10/09/18 08:50 CT Abd/Pelvis has donna reviewed. Differential Diagnoses includes: Pancreatitis vs. Gastritis vs. Cardiac disease. Due to her complaints of mild left side chest discomfort associated with bradycardia, patient will be admitted to telemetry bed. Will be admitted under hospitalist service. Currently denies any pleuritic pain. No hypoxia. No calf pain/edema. On re-exam, patient comfortable. Denies chest pain. Heart rate if 55. Blood pressure 110/70. No shortness of breath or dizziness. No cough. No rash. Discussed case with covering physician for PMD. Care transferred to hospitalist team at 1015 am. - Lab Interpretations Lab Results: PT 13.0 SECONDS (9.4-12.5) H 10/09/18 07:45 INR 1.15 10/09/18 07:45 APTT 31.1 Seconds (26.9-38.3) 10/09/18 07:45 - RAD Interpretation Radiology Orders: 10/09/18 07:26 CHEST PORTABLE [RAD] Stat - Medication Orders Current Medication Orders: Sodium Chloride (Sodium Chloride 0.9%) 1,000 mls @ 100 mls/hr IV .Q10H FABIAN Last Admin: 10/09/18 07:51 Dose: 100 mls/hr eMAR Start Stop Document 10/09/18 07:51 SRE (Rec: 10/09/18 07:53 SRE [id number]) Intravenous Solution Start Date 10/09/18 Start Time 07:52 - Scribe Statement The provider has reviewed the documentation as recorded by the Parrish Bermeo Provider Scribe Attestation: All medical record entries made by the Scribras were at my direction and personally dictated by me. I have reviewed the chart and agree that the record accurately reflects my personal performance of the history, physical exam, medical decision making, and the department course for this patient. I have also personally directed, reviewed, and agree with the discharge instructions and disposition. Disposition/Present on Arrival - Present on Arrival Any Indicators Present on Arrival: No History of DVT/PE: No History of Uncontrolled Diabetes: No Urinary Catheter: No History of Decub. Ulcer: No History Surgical Site Infection Following: None - Disposition Have Diagnosis and Disposition been Completed?: Yes Diagnosis: Abdominal pain, Chest pain, Pancreatitis, Bradycardia Disposition: HOSPITALIZED Disposition Time: 08:48 Patient Plan: Admission, Telemetry Patient Problems: Current Active Problems Problem Status Onset Abdominal pain Acute Bradycardia Acute Chest pain Acute Pancreatitis Acute Condition: STABLE
[2018-10-09 08:20] LABS: TROPONIN I < 0.01 ng/mL
--- NOTE | 2018-10-09 11:08 | CP.PCM.HP ---
<Lyndsay Werner - Last Filed: 10/09/18 18:49> History of Present Illness - History of Present Illness History of Present Illness: Resident History & Physical for Hospitalist Service Patient is a 48 year old female with past medical history of obesity, hyperlipidemia, and recent gastric bypass surgery 2 weeks ago presenting with chief complaint of left sided abdominal pain which began yesterday morning. She believes the pain may have been related to her carrying heavy objects. Patient states the pain is a constant ache with intermittent sharp exacerbations. Pain i s worsened with positional changes and ambulation. Patient has tried Tylenol with no relief. She states that she follows diet as instructed for gastric bypass patients. Admits to nausea, headache, dizziness, chest discomfort. Denies vomiting, shortness of breath, diarrhea, dysuria. PMH: obesity, hyperlipidemia PSH: gastric bypass, cholecystectomy, x1 SHx: former smoker x26 years, quit 2 years ago, rare alcohol, denies illicit drug use FHx: brother (T2DM, GERD) Allergies: gabapentin, acetaminophen, oxycodone PMD: Dr. Trisha Ibrahim Present on Admission - Present on Admission Any Indicators Present on Admission: No Review of Systems - Review of Systems All systems: reviewed and no additional remarkable complaints except (as stated in HPI) Past Patient History - Infectious Disease Hx of Infectious Diseases: None - Tetanus Immunizations Tetanus Immunization: Unknown - Past Social History Smoking Status: Never Smoked - CARDIAC Hx Cardiac Disorders: Yes Hx Peripheral Edema: Yes - PULMONARY Hx Respiratory Disorders: No - NEUROLOGICAL Hx Neurological Disorder: Yes Hx Transient Ischemic Attacks (TIA): Yes (2012) - HEENT Hx HEENT Problems: (WEARS RX reading GLASSES) - RENAL Hx Chronic Kidney Disease: No - ENDOCRINE/METABOLIC Hx Endocrine Disorders: No - HEMATOLOGICAL/ONCOLOGICAL Hx Blood Disorders: No - INTEGUMENTARY Hx Dermatological Problems: No - MUSCULOSKELETAL/RHEUMATOLOGICAL Hx Musculoskeletal Disorders: Yes Other/Comment: Knee pain - GASTROINTESTINAL Hx Gastrointestinal Disorders: Yes Hx Gall Bladder Disease: Yes (CHOLECYSTECTOMY) - GENITOURINARY/GYNECOLOGICAL Hx Genitourinary Disorders: Yes (CEASEREAN SECTION X 1,LUMPS TO BILATERAL BREAST) - PSYCHIATRIC Hx Substance Use: No - SURGICAL HISTORY Hx Section: Yes Hx Cholecystectomy: Yes Other/Comment: gastric sleeve 2 weeks ago - ANESTHESIA Hx Anesthesia: Yes Hx Anesthesia Reactions: No Hx Malignant Hyperthermia: No Meds Allergies/Adverse Reactions: Allergies Allergy/AdvReac Type Severity Reaction Status Date / Time gabapentin Allergy RASH Verified 10/09/18 07:13 acetaminophen [From Percocet] AdvReac RASH Verified 03/05/18 20:06 oxycodone [From Percocet] AdvReac RASH Verified 03/05/18 20:06 Physical Exam - Constitutional Appears: Non-toxic, No Acute Distress - Head Exam Head Exam: ATRAUMATIC, NORMOCEPHALIC - Eye Exam Eye Exam: EOMI, Normal appearance, PERRL - ENT Exam ENT Exam: Mucous Membranes Moist - Neck Exam Neck exam: Positive for: Full Rom. Negative for: Lymphadenopathy, Tenderness - Respiratory Exam Respiratory Exam: Chest Wall Tenderness, Clear to Auscultation Bilateral, NORMAL BREATHING PATTERN. absent: Accessory Muscle Use, Rales, Rhonchi, Wheezes, Respiratory Distress - Cardiovascular Exam Cardiovascular Exam: Bradycardia, REGULAR RHYTHM, +S1, +S2. absent: Systolic Murmur - GI/Abdominal Exam GI & Abdominal Exam: Normal Bowel Sounds, Soft, Tenderness. absent: Distended (LUQ), Firm, Guarding, Rebound, Rigid - Extremities Exam Extremities exam: Positive for: normal capillary refill, pedal pulses present. Negative for: pedal edema, tenderness - Neurological Exam Neurological exam: Alert, CN II-XII Intact, Oriented x3 - Psychiatric Exam Psychiatric exam: Normal Affect, Normal Mood - Skin Skin Exam: Dry, Intact, Normal Color, Warm Results - Vital Signs Recent Vital Signs: Last Vital Signs Temp 98 F 10/09/18 10:33 Pulse 60 10/09/18 10:33 Resp 18 10/09/18 10:33 BP 111/76 10/09/18 10:33 Pulse Ox 96 10/09/18 10:33 - Labs Result Diagrams: 10/09/18 07:45 10/09/18 07:45 Labs: Laboratory Results - last 24 hr 10/09/18 10/09/18 10/09/18 07:45 07:45 07:45 WBC 5.2 RBC 4.17 Hgb 11.3 L Hct 36.0 MCV 86.3 MCH 27.1 MCHC 31.4 RDW 13.8 Plt Count 279 MPV 10.9 PT 13.0 H INR 1.15 APTT 31.1 Sodium 140 Potassium 3.6 Chloride 109 H Carbon Dioxide 26 Anion Gap 9 L BUN 7 Creatinine 0.6 L Est GFR ( Amer) > 60 Est GFR (Non-Af Amer) > 60 Random Glucose 91 Calcium 8.3 L Total Bilirubin 0.3 AST 67 H ALT 68 H Alkaline Phosphatase 67 Lactate Dehydrogenase 500 Total Creatine Kinase 125 Troponin I < 0.01 Total Protein 6.2 Albumin 3.4 Globulin 2.8 Albumin/Globulin Ratio 1.2 Lipase 812 H Assessment & Plan - Assessment and Plan (Free Text) Assessment: Patient is a 48 year old female with past medical history of obesity, hyperlipi demia, and recent gastric bypass surgery 2 weeks ago presenting with chief complaint of left sided abdominal pain. Plan: Abdominal pain - CT abd pelvis shows no evidence of pancreatic infiltration, moderate dilatation of CBD - Lipase 812 - Transaminitis - GI consulted. Appreciate recs. - Zofran PRN - Motrin PRN Atypical chest pain with bradycardia - TARYN score 0 - Troponins Q6H - Troponin negx1 - EKG shows sinus bradycardia - TSH, Hgba1c, lipid panel - Cardiology consulted. Appreciate recs. - Aspirin 81 mg PO daily PPX - Heparin 5000 units SC Q8 - Protonix 40 mg PO daily Case reviewed with Dr. Michael Werner PGY-1 <Chiquita Rodriguez R - Last Filed: 10/09/18 18:53> Results - Vital Signs Recent Vital Signs: Last Vital Signs Temp 98.2 F 10/09/18 17:59 Pulse 64 10/09/18 17:59 Resp 18 10/09/18 17:59 BP 106/69 10/09/18 17:59 Pulse Ox 96 10/09/18 17:59 - Labs Result Diagrams: 10/09/18 07:45 10/09/18 07:45 Labs: Laboratory Results - last 24 hr 10/09/18 10/09/18 10/09/18 07:45 07:45 07:45 WBC 5.2 RBC 4.17 Hgb 11.3 L Hct 36.0 MCV 86.3 MCH 27.1 MCHC 31.4 RDW 13.8 Plt Count 279 MPV 10.9 PT 13.0 H INR 1.15 APTT 31.1 Sodium 140 Potassium 3.6 Chloride 109 H Carbon Dioxide 26 Anion Gap 9 L BUN 7 Creatinine 0.6 L Est GFR ( Amer) > 60 Est GFR (Non-Af Amer) > 60 Random Glucose 91 Calcium 8.3 L Total Bilirubin 0.3 AST 67 H ALT 68 H Alkaline Phosphatase 67 Lactate Dehydrogenase 500 Total Creatine Kinase 125 Troponin I < 0.01 Total Protein 6.2 Albumin 3.4 Globulin 2.8 Albumin/Globulin Ratio 1.2 Lipase 812 H 10/09/18 12:31 WBC RBC Hgb Hct MCV MCH MCHC RDW Plt Count MPV PT INR APTT Sodium Potassium Chloride Carbon Dioxide Anion Gap BUN Creatinine Est GFR ( Amer) Est GFR (Non-Af Amer) Random Glucose Calcium Total Bilirubin AST ALT Alkaline Phosphatase Lactate Dehydrogenase Total Creatine Kinase Troponin I < 0.01 Total Protein Albumin Globulin Albumin/Globulin Ratio Lipase Attending/Attestation - Attestation I have personally seen and examined this patient.: Yes I have fully participated in the care of the patient.: Yes I have reviewed all pertinent clinical information: Yes Notes (Text): Patient seen and examined by me with resident at 10: 45AM on 10/09/18 in the emergency room. Case including HPI, physical exam, and assessment and plan discussed with resident. Agree with above with following additions/corrections. Patient is a 48-year-old female past medical history significant bradycardia and prediabetes the presented to the emergency room with left-sided abdominal pain. Patient states that she had a gastric sleeve approximately 2 weeks ago. Yesterday she was doing some heavy lifting when she started to have left-sided abdominal pain around 9 AM. She states that she called the bariatric nurse at [facility] who advised her to go to the emergency room. Patient sees that the pain is constant with intermittent sharp pain. No radiation of the pain. Pain is worsened with walking. Patient tried liquid Tylenol at home with no improvement. Patient states that she has been on a liquid diet since having the gastric sleeve. He states that she has been following the diet that her surgeon gave her. Patient has also had associated nausea. She states that she had some dizziness yesterday but that has resolved today. She also complains of a mild headache. Patient also complains of left-sided chest pain that started today. She states it comes and goes. She states it feels like "gas pain." No radiation of the pain. No associated diaphoresis. No palpitations. No shortness of breath. No fevers or chills. No lightheadedness or change in vision. No dysuria. Patient states that she has been having some diarrhea secondary to being on just liquids. Patient states that she was diagnosed with bradycardia approximately 2 weeks ago while she was [facility]. She was seen by cardiology at that time who did not find any problems. 12 point review of systems reviewed by me. Please see above HPI. All other systems negative. Past medical history: bradycardia, pre-diabetic Family History: Mother is alive and has diabetes and "heart problems." Father at young age secondary to an accident. Medications at home: "vitamins" Physical exam: General: Awake and alert lying in bed in no acute distress HEENT: Normocephalic, atraumatic. Extraocular muscles intact, pupils equal and reactive, no scleral icterus. Oropharynx is pink moist. No pharyngeal erythema or exudate appreciated. Neck is supple. Hearing grossly intact. Ears and nose externally unremarkable. Cardiovascular: Regular rhythm. Normal S1 and S2. No murmurs, rubs, or gallops appreciated Pulmonary: Normal respiratory effort. No rhonchi, rales, or wheezing appreciated. Gastrointestinal: Soft, nondistended. Positive left upper quadrant tenderness. Positive bowel sounds all 4 quadrants. No guarding. Well-healed surgical incisions. Musculoskeletal: Moves all extremities. No calf tenderness. No edema appreciated. Central nervous system: AAOx3. CN 2-12 grossly intact. 5/5 muscle strength all extremities. Dermatologic: Skin warm and dry. Assessment and plan: Patient is a 48-year-old female past medical history significant bradycardia and prediabetes the presented to the emergency room with left-sided abdominal pain. 1. Left upper quadrant abdnominal pain. Nausea. Elevated lipase. Dilated common bile duct. CT [facility]ologist there showed no evidence of pancreatic infiltration; mosaic pattern of enhancement of the liver parenchyma; limited assessment of the hepatic veins and portal vein due to multiple mixing of contrast, likely related to bolus timing, but it appear grossly patent; status post gastric sleeve procedure, no bowel obstruction, normal appendix; moderate dilatation of the common bile duct and mild intrahepatic biliary duct dilatation; the degree of biliary ductal dilatation appears mildly greater than expected for post cholecystectomy changes, although it may still represent post surgical change. GI consulted, follow up recommendations. Placed on clear liquids. 2. Atypical chest pain. Cardiology consulted, follow up recommendations. First troponin within normal limits. Follow up serial troponin. Follow up HgbA1C, TSH, and lipid panel. Monitor on telemetry. 3. Bradycardia. Unclear etiology. Cardiology consulted, follow up recommendations. 4. S/P gastric sleeve. Patient advised that she will need to follow up with her surgeon on discharge. Patient placed on clear liquid diet for now. 5. GI/DVT prophylaxis. Protonix/heparin. Case was discussed in detail with the patient regarding current diagnosis and treatment plan. All questions answered.
--- NOTE | 2018-10-09 11:32 | RAD ---
HISTORY: chest/abdominal pain COMPARISON: Chest x-ray performed 09/13/18 TECHNIQUE: Chest, one view. FINDINGS: Examination limited by habitus. LUNGS: No focal consolidation. Please note that chest x-ray has limited sensitivity for the detection of pulmonary masses. PLEURA: No significant pleural effusion identified. No definite pneumothorax . CARDIOVASCULAR: Heart size appears within normal limits. No significant atherosclerotic calcification present. OSSEOUS STRUCTURES: No acute osseous abnormality identified. VISUALIZED UPPER ABDOMEN: Unremarkable. OTHER FINDINGS: None. IMPRESSION: No focal consolidation.
[2018-10-09 12:32] VITALS: BMI 37.8
[2018-10-10] MEDS: Sodium Chloride 0.9% 1,000 ML IV SCH (04:06)
[2018-10-10] MEDS: Pantoprazole 40 mg EC Tab PO SCH (06:24)
--- NOTE | 2018-10-10 07:40 | CP.PCM.PN ---
<WernerLyndsay L - Last Filed: 10/10/18 12:04> Subjective - Date & Time of Evaluation Date of Evaluation: 10/10/18 Time of Evaluation: 07:39 - Subjective Subjective: Resident Progress Note for Hospitalist Service Patient examined at bedside. No acute events overnight. Patient admits to persistent left sided abdominal pain and intermittent chest discomfort. Tolerating liquid diet. Denies fevers, chills, shortness of breath, diarrhea, dysuria. Objective - Vital Signs/Intake and Output Vital Signs (last 24 hours): Temp Pulse Resp BP Pulse Ox 97.8 F 54 L 20 107/73 96 10/10/18 05:50 10/10/18 05:50 10/10/18 05:50 10/10/18 05:50 10/10/18 05:50 Intake and Output: 10/10/18 10/10/18 06:59 18:59 Intake Total 2340 Output Total 0 Balance 2340 - Medications Medications: Current Medications Aspirin (Ecotrin) 81 mg PO DAILY [facility] Heparin Sodium (Porcine) (Heparin) 5,000 units SC Q8 [facility]; Protocol Last Admin: 10/10/18 06:20 Dose: 5,000 units Sodium Chloride (Sodium Chloride 0.9%) 1,000 mls @ 100 mls/hr IV .Q10H [facility] Stop: 10/10/18 14:00 Last Admin: 10/10/18 04:06 Dose: 100 mls/hr Ibuprofen (Motrin Oral Susp) 400 mg PO Q6H PRN PRN Reason: Headache Last Admin: 10/09/18 21:26 Dose: 400 mg Ondansetron HCl (Zofran Inj) 4 mg IVP Q4H PRN PRN Reason: Nausea/Vomiting Pantoprazole Sodium (Protonix Ec Tab) 40 mg PO 0600 [facility] Last Admin: 10/10/18 06:24 Dose: 40 mg - Labs Labs: 10/09/18 07:45 10/09/18 07:45 PT 13.0 SECONDS (9.4-12.5) H 10/09/18 07:45 INR 1.15 10/09/18 07:45 APTT 31.1 Seconds (26.9-38.3) 10/09/18 07:45 - Additional Findings Additional findings: - Constitutional Appears: Non-toxic, No Acute Distress - Head Exam Head Exam: ATRAUMATIC, NORMOCEPHALIC - Eye Exam Eye Exam: EOMI, Normal appearance, PERRL - ENT Exam ENT Exam: Mucous Membranes Moist - Neck Exam Neck exam: Positive for: Full Rom. Negative for: Lymphadenopathy, Tenderness - Respiratory Exam Respiratory Exam: Chest Wall Tenderness, Clear to Auscultation Bilateral, NORMAL BREATHING PATTERN. absent: Accessory Muscle Use, Rales, Rhonchi, Wheezes, Respiratory Distress - Cardiovascular Exam Cardiovascular Exam: Bradycardia, REGULAR RHYTHM, +S1, +S2. absent: Systolic Murmur - GI/Abdominal Exam GI & Abdominal Exam: Normal Bowel Sounds, Soft, Tenderness. absent: Distended (LUQ), Firm, Guarding, Rebound, Rigid - Extremities Exam Extremities exam: Positive for: normal capillary refill, pedal pulses present. Negative for: pedal edema, tenderness - Neurological Exam Neurological exam: Alert, CN II-XII Intact, Oriented x3 - Psychiatric Exam Psychiatric exam: Normal Affect, Normal Mood - Skin Skin Exam: Dry, Intact, Normal Color, Warm Assessment and Plan - Assessment and Plan (Free Text) Assessment: Patient is a 48 year old female with past medical history of obesity, hyperlipidemia, and recent gastric bypass surgery 2 weeks ago presenting with chief complaint of left sided abdominal pain. Plan: Abdominal pain - CT abd pelvis shows no evidence of pancreatic infiltration, moderate dilatation of CBD - Lipase 812 - Transaminitis resolving - GI consulted. Appreciate recs. - Zofran PRN - Motrin PRN - abdominal ultrasound results pending Atypical chest pain with bradycardia - TARYN score 0 - Troponin negx3 - EKG shows sinus bradycardia - TSH low, followup free T4 - lipid panel unremarkable - Hgba1c - Cardiology consulted. Appreciate recs. - Aspirin 81 mg PO daily PPX - Heparin 5000 units SC Q8 - Protonix 40 mg PO daily Case reviewed with Dr. Michael Werner PGY-1 <Chiquita Rodriguez - Last Filed: 10/10/18 13:43> Objective - Vital Signs/Intake and Output Vital Signs (last 24 hours): Temp Pulse Resp BP Pulse Ox 98.1 F 63 18 107/73 96 10/10/18 12:00 10/10/18 12:00 10/10/18 12:00 10/10/18 12:00 10/10/18 05:50 Intake and Output: 10/10/18 10/10/18 06:59 18:59 Intake Total 2340 Output Total 0 Balance 2340 - Medications Medications: Current Medications Heparin Sodium (Porcine) (Heparin) 5,000 units SC Q8 [facility]; Protocol Last Admin: 10/10/18 13:19 Dose: 5,000 units Ondansetron HCl (Zofran Inj) 4 mg IVP Q4H PRN PRN Reason: Nausea/Vomiting Pantoprazole Sodium (Protonix Ec Tab) 40 mg PO 0600 [facility] Last Admin: 10/10/18 06:24 Dose: 40 mg - Labs Labs: 10/10/18 07:00 10/10/18 07:00 PT 13.0 SECONDS (9.4-12.5) H 10/09/18 07:45 INR 1.15 10/09/18 07:45 APTT 31.1 Seconds (26.9-38.3) 10/09/18 07:45 Attending/Attestation - Attestation I have personally seen and examined this patient.: Yes I have fully participated in the care of the patient.: Yes I have reviewed all pertinent clinical information, including history, physical exam and plan: Yes Notes (Text): Patient seen and examined by me with resident at 8:40AM on 10/10/18. Case including HPI, physical exam, and assessment and plan discussed with resident. Agree with above with following additions/corrections. Patient is a 48-year-old female past medical history significant bradycardia and prediabetes the presented to the emergency room with left-sided abdominal pain. Patient states she is feeling about the same today. She is still having left u pper quadrant abdominal pain with no raidation of the pain. Patient is having associated nausea but no vomiting. Patient is tolerating liquid diet. Still with intermittent left sided chest pain. No palpitations. No shortness of breath. No fevers or chills. No lightheadedness or change in vision. No dysuria. Complains of a mild headache. Physical exam: General: Awake and alert lying in bed in no acute distress HEENT: Normocephalic, atraumatic. Extraocular muscles intact, pupils equal and reactive, no scleral icterus. Oropharynx is pink moist. No pharyngeal erythema or exudate appreciated. Neck is supple. Cardiovascular: Regular rhythm. Normal S1 and S2. No murmurs, rubs, or gallops appreciated Pulmonary: Normal respiratory effort. No rhonchi, rales, or wheezing appreciated. Gastrointestinal: Soft, nondistended. Positive left upper quadrant tenderness. Positive bowel sounds all 4 quadrants. No guarding. Well-healed surgical incisions. Musculoskeletal: Moves all extremities. No calf tenderness. No edema appreciated. Central nervous system: AAOx3. CN 2-12 grossly intact. Dermatologic: Skin warm and dry. Assessment and plan: Patient is a 48-year-old female past medical history s ignificant bradycardia and prediabetes the presented to the emergency room with left-sided abdominal pain. 1. Left upper quadrant abdominal pain. Nausea. Elevated lipase at 812. Dilated common bile duct. GI following, recommendations appreciated. Continue with liquid diet. Abdominal ultrasound per radiologist showed re-identified dilated common bile duct in the setting of cholecystectomy, echogenic liver may be seen in the setting of hepatic parenchymal disease or fatty infiltration. Status post IV fluids. LFTs slightly improved. Hepatitis panel pending. No EGD for now per GI. CT abd[facility]pelvis from [facility] per radiologist there showed no evidence of pancreatic infiltration; mosaic pattern of enhancement of the liver parenchyma; limited assessment of the hepatic veins and portal vein due to multiple mixing of contrast, likely related to bolus timing, but it appear grossly patent; stat us post gastric sleeve procedure, no bowel obstruction, normal appendix; moderate dilatation of the common bile duct and mild intrahepatic biliary duct dilatation; the degree of biliary ductal dilatation appears mildly greater than expected for post cholecystectomy changes, although it may still represent post surgical change. 2. Atypical chest pain. Cardiology consulted, follow up recommendations troponins within normal limits. TSH slightly low. Follow-up free T4. Hemoglobin A1c 5.6. Continue to monitor on telemetry. 3. Bradycardia. Unclear etiology. Cardiology consulted, follow up recommend ations. Continue to monitor on telemetry. 4. S/P gastric sleeve. Patient advised that she will need to follow up with her surgeon on discharge. Continue with liquid diet. 5. GI/DVT prophylaxis. Protonix/heparin. Case was discussed in detail with the patient regarding current diagnosis and treatment plan. All questions answered.
--- NOTE | 2018-10-10 07:46 | CARD ---
APPROVED REPORT Date of service: 10/09/2018 EKG Measurement Heart [id number] <Conclusion> Marked sinus bradycardia Abnormal ECG
[2018-10-10 08:21] LABS: BASO # 0.02 {null, K/mm3} (0.0-2.0); BASO % 0.6 % (0.0-3.0); EOS # 0.4 (0.0-0.7); EOS % 10.2 % (1.5-5.0); HEMOGLOBIN 11.1 g/dL (12.0-16.0); LYMPH # 1.8 (1.2-3.4); LYMPH % 51.2 % (22.0-35.0); MEAN CELL VOLUME 87.3 fl (80.0-105.0); MEAN CORPUSCULAR HEMOGLOBIN 26.7 pg (25.0-35.0); MEAN CORPUSCULAR HGB CONC 30.6 g/dl (31.0-37.0); MEAN PLATELET VOLUME 11.5 fl (7.0-11.0); MONO # 0.3 (0.1-0.6); MONO % 8.5 % (1.0-6.0); RBC 4.16 {null, 10^6/uL} (3.5-6.1); RED CELL DISTRIBUTION WIDTH 14.1 % (11.5-14.5); WHITE BLOOD COUNT 3.4 {null, 10^3/uL} (4.5-11.0)
[2018-10-10 08:31] LABS: ALB/GLOB RATIO 1.2 (1.1-1.8); ALBUMIN 3.1 g/dL (3.0-4.8); ALT/SGPT 67 U/L (7-56); AST/SGOT 56 U/L (14-36); BLOOD UREA NITROGEN 4 mg/dL (7-21); CALCIUM 8.3 mg/dL (8.4-10.5); GFR NON-AFRICAN AMERICAN > 60; HDL CHOLESTEROL 23 mg/dL (29-60)
[2018-10-10 08:41] LABS: LDL CHOLESTEROL 77 mg/dL (0-129)
--- NOTE | 2018-10-10 12:34 | US ---
HISTORY: abd pain, eval CBD COMPARISON: CT abdomen and pelvis without/with IV contrast performed 01/06/17 TECHNIQUE: Sonographic evaluation of the abdomen. FINDINGS: LIVER: Measures 14.3 cm in sagittal dimension. Echogenic liver may be seen in setting of hepatic parenchymal disease or fatty infiltration. No focal hepatic mass identified. The main portal vein appears patent with normal directional flow. No intrahepatic bile duct dilatation. GALLBLADDER: Cholecystectomy. COMMON BILE DUCT: Measures up to 1.3 cm. PANCREAS: Not well visualized. RIGHT KIDNEY: Measures 10.7 x 4.3 x 5.8 cm. No obstructing calculus or hydronephrosis identified. LEFT KIDNEY: Measures 10.3 x 5.1 x 5.0 cm. No obstructing calculus or hydronephrosis identified. SPLEEN: Measures approximately 10.4 cm. AORTA: Limited views appear unremarkable. IVC: Limited views appear unremarkable. OTHER FINDINGS: None. IMPRESSION: Re-identified dilated common bile duct in the setting of cholecystectomy. Echogenic liver may be seen in setting of hepatic parenchymal disease or fatty infiltration.
--- NOTE | 2018-10-10 13:16 | CP.PCM.CON ---
<Julianne Rodriguez - Last Filed: 10/10/18 15:43> History of Present Illness - History of Present Illness History of Present Illness: Initial GI Consult Note Reema Teresa is a 48 year old female with history of obesity, hyperlipidemia, and recent gastric bypass surgery 2 weeks ago presenting with chief complaint of left sided and epigastric abdominal pain. Pt states that the onset was 1 day prior located in the epigastric area. She notes radiation to the back. She went to the [facility] ER in [place] for further evaluation. In [facility] ER, pt was told she has pancreatitis and advised to get admitted at [facility] for treatment. Pt refused and went went to [facility] ER for further management. Pt was found to initially have lipase of 800 and continued to have pain. Pt was given fluids and pain meds. GI was consulted for CT finding of Diliated CBD (s/p rogelio baker). Pt had a previous CT abd which revealed a CBD ~1.7cm. Denies any diarrhea, ETOH use, prior episode of pancreatitis. PMH: obesity, hyperlipidemia PSH: gastric bypass, cholecystectomy, x1 SHx: former smoker x26 years, quit 2 years ago, rare alcohol, denies illicit drug use FHx: brother (T2DM, GERD) Past Patient History - Infectious Disease Hx of Infectious Diseases: None - Tetanus Immunizations Tetanus Immunization: Unknown - Past Social History Smoking Status: Never Smoked - CARDIAC Hx Cardiac Disorders: Yes Hx Peripheral Edema: Yes - PULMONARY Hx Respiratory Disorders: No - NEUROLOGICAL Hx Neurological Disorder: Yes Hx Transient Ischemic Attacks (TIA): Yes (2012) - HEENT Hx HEENT Problems: (WEARS RX reading GLASSES) - RENAL Hx Chronic Kidney Disease: No - ENDOCRINE/METABOLIC Hx Endocrine Disorders: No - HEMATOLOGICAL/ONCOLOGICAL Hx Blood Disorders: No - INTEGUMENTARY Hx Dermatological Problems: No - MUSCULOSKELETAL/RHEUMATOLOGICAL Hx Musculoskeletal Disorders: Yes Other/Comment: Knee pain - GASTROINTESTINAL Hx Gastrointestinal Disorders: Yes Hx Gall Bladder Disease: Yes (CHOLECYSTECTOMY) - GENITOURINARY/GYNECOLOGICAL Hx Genitourinary Disorders: Yes (CEASEREAN SECTION X 1,LUMPS TO BILATERAL BREAST) - PSYCHIATRIC Hx Substance Use: No - SURGICAL HISTORY Hx Section: Yes Hx Cholecystectomy: Yes Other/Comment: gastric sleeve 2 weeks ago - ANESTHESIA Hx Anesthesia: Yes Hx Anesthesia Reactions: No Hx Malignant Hyperthermia: No Meds Allergies/Adverse Reactions: Allergies Allergy/AdvReac Type Severity Reaction Status Date / Time gabapentin Allergy RASH Verified 10/09/18 07:13 acetaminophen [From Percocet] AdvReac RASH Verified 03/05/18 20:06 oxycodone [From Percocet] AdvReac RASH Verified 03/05/18 20:06 - Medications Medications: Current Medications Aspirin (Ecotrin) 81 mg PO DAILY [facility] Last Admin: 10/10/18 10:57 Dose: 81 mg Heparin Sodium (Porcine) (Heparin) 5,000 units SC Q8 [facility]; Protocol Last Admin: 10/10/18 06:20 Dose: 5,000 units Ibuprofen (Motrin Oral Susp) 400 mg PO Q6H PRN PRN Reason: Headache Last Admin: 10/09/18 21:26 Dose: 400 mg Ondansetron HCl (Zofran Inj) 4 mg IVP Q4H PRN PRN Reason: Nausea/Vomiting Pantoprazole Sodium (Protonix Ec Tab) 40 mg PO 0600 [facility] Last Admin: 10/10/18 06:24 Dose: 40 mg Physical Exam - Constitutional Appears: Non-toxic, No Acute Distress - Head Exam Head Exam: ATRAUMATIC, NORMOCEPHALIC - Eye Exam Eye Exam: Normal appearance - ENT Exam ENT Exam: Mucous Membranes Moist, Normal Exam - Neck Exam Neck exam: Positive for: Normal Inspection - Respiratory Exam Respiratory Exam: Clear to Auscultation Bilateral, NORMAL BREATHING PATTERN. absent: Rales, Rhonchi, Wheezes, Respiratory Distress - Cardiovascular Exam Cardiovascular Exam: REGULAR RHYTHM, +S1, +S2 - GI/Abdominal Exam GI & Abdominal Exam: Normal Bowel Sounds, Soft, Tenderness (epigastric). absent: Diminished Bowel Sounds, Distended, Firm, Guarding, Hernia, Pulsatile Mass, Rebound, Rigid - Extremities Exam Extremities exam: Negative for: joint swelling, pedal edema - Back Exam Back exam: NORMAL INSPECTION - Psychiatric Exam Psychiatric exam: Normal Affect, Normal Mood - Skin Skin Exam: Dry, Intact, Normal Color, Warm Results - Vital Signs Recent Vital Signs: Last Vital Signs Temp 97.8 F 10/10/18 05:50 Pulse 56 L 10/10/18 10:00 Resp 20 10/10/18 05:50 BP 107/73 10/10/18 05:50 Pulse Ox 96 10/10/18 05:50 - Labs Result Diagrams: 10/10/18 07:00 10/10/18 07:00 Labs: Laboratory Results - last 24 hr 10/09/18 10/09/18 10/09/18 12:31 18:15 23:50 WBC RBC Hgb Hct MCV MCH MCHC RDW Plt Count MPV Neut % (Auto) Lymph % (Auto) Upson % (Auto) Eos % (Auto) Baso % (Auto) Lymph # (Auto) Upson # (Auto) Eos # (Auto) Baso # (Auto) Absolute Neuts (auto) Sodium Potassium Chloride Carbon Dioxide Anion Gap BUN Creatinine Est GFR ( Amer) Est GFR (Non-Af Amer) Random Glucose Hemoglobin A1c Calcium Phosphorus Magnesium Total Bilirubin AST ALT Alkaline Phosphatase Troponin I < 0.01 < 0.01 < 0.01 Total Protein Albumin Globulin Albumin/Globulin Ratio Triglycerides Cholesterol LDL Cholesterol Direct HDL Cholesterol TSH 3rd Generation 10/10/18 10/10/18 10/10/18 07:00 07:00 07:00 WBC 3.4 L D RBC 4.16 Hgb 11.1 L Hct 36.3 MCV 87.3 MCH 26.7 MCHC 30.6 L RDW 14.1 Plt Count 274 MPV 11.5 H Neut % (Auto) 29.5 L Lymph % (Auto) 51.2 H Upson % (Auto) 8.5 H Eos % (Auto) 10.2 H Baso % (Auto) 0.6 Lymph # (Auto) 1.8 Upson # (Auto) 0.3 Eos # (Auto) 0.4 Baso # (Auto) 0.02 Absolute Neuts (auto) 1.01 L Sodium 139 Potassium 4.0 Chloride 109 H Carbon Dioxide 27 Anion Gap 7 L BUN 4 L Creatinine 0.6 L Est GFR ( Amer) > 60 Est GFR (Non-Af Amer) > 60 Random Glucose 88 Hemoglobin A1c 5.6 Calcium 8.3 L Phosphorus 3.1 Magnesium 2.2 Total Bilirubin 0.4 AST 56 H ALT 67 H Alkaline Phosphatase 69 Troponin I Total Protein 5.8 Albumin 3.1 Globulin 2.7 Albumin/Globulin Ratio 1.2 Triglycerides 126 Cholesterol 122 L LDL Cholesterol Direct 77 HDL Cholesterol 23 L TSH 3rd Generation 10/10/18 07:00 WBC RBC Hgb Hct MCV MCH MCHC RDW Plt Count MPV Neut % (Auto) Lymph % (Auto) Upson % (Auto) Eos % (Auto) Baso % (Auto) Lymph # (Auto) Upson # (Auto) Eos # (Auto) Baso # (Auto) Absolute Neuts (auto) Sodium Potassium Chloride Carbon Dioxide Anion Gap BUN Creatinine Est GFR ( Amer) Est GFR (Non-Af Amer) Random Glucose Hemoglobin A1c Calcium Phosphorus Magnesium Total Bilirubin AST ALT Alkaline Phosphatase Troponin I Total Protein Albumin Globulin Albumin/Globulin Ratio Triglycerides Cholesterol LDL Cholesterol Direct HDL Cholesterol TSH 3rd Generation 0.31 L Assessment & Plan - Assessment and Plan (Free Text) Assessment: Reema Teresa is a 48 year old female with history of obesity, hyperlipidemia, and recent gastric bypass surgery 2 weeks ago presenting with chief complaint of left sided abdominal pain. Abd Pain, etiology Pancreatitis?; DDx: recent gastric sleeve surgery, PUD Pancreatitis?, elevated lipase (800, which is slightly less than x3 upper limit) Dilated CBD; s/p lap marc; prior CT 2017 similar Obesity, s/p gastric sleeve elevated LFTs, hepatocellular HL Plan: -will review GB U/S -will review CT Abd from [facility] -continue IV fluids -start clears -no plan for endoscopy at this time in the setting of recent gastric sleeve -monitor LFTs -will hold on imaging for now after reviewing CT from [facility] ER -will send for BLAINE, Anti-smooth, Anti mitoch, IGG, Hep panel -will also send for IGG4 and lipid panel -will follow D/W Dr. Smart <Joselyn Smart V - Last Filed: 10/10/18 22:56> Meds - Medications Medications: Current Medications Heparin Sodium (Porcine) (Heparin) 5,000 units SC Q8 [facility]; Protocol Last Admin: 10/10/18 21:30 Dose: 5,000 units Ibuprofen (Motrin Oral Susp) 100 mg PO Q6H PRN PRN Reason: Pain, moderate (4-7) Last Admin: 10/10/18 17:45 Dose: 100 mg Ondansetron HCl (Zofran Inj) 4 mg IVP Q4H PRN PRN Reason: Nausea/Vomiting Pantoprazole Sodium (Protonix Ec Tab) 40 mg PO 0600 [facility] Last Admin: 10/10/18 06:24 Dose: 40 mg Results - Vital Signs Recent Vital Signs: Last Vital Signs Temp 98.6 F 10/10/18 22:00 Pulse 56 L 10/10/18 22:00 Resp 20 10/10/18 22:00 BP 107/76 10/10/18 22:00 Pulse Ox 97 10/10/18 22:00 - Labs Result Diagrams: 10/10/18 07:00 10/10/18 07:00 Labs: Laboratory Results - last 24 hr 10/09/18 10/10/18 10/10/18 23:50 07:00 07:00 WBC 3.4 L D RBC 4.16 Hgb 11.1 L Hct 36.3 MCV 87.3 MCH 26.7 MCHC 30.6 L RDW 14.1 Plt Count 274 MPV 11.5 H Neut % (Auto) 29.5 L Lymph % (Auto) 51.2 H Upson % (Auto) 8.5 H Eos % (Auto) 10.2 H Baso % (Auto) 0.6 Lymph # (Auto) 1.8 Upson # (Auto) 0.3 Eos # (Auto) 0.4 Baso # (Auto) 0.02 Absolute Neuts (auto) 1.01 L Sodium 139 Potassium 4.0 Chloride 109 H Carbon Dioxide 27 Anion Gap 7 L BUN 4 L Creatinine 0.6 L Est GFR ( Amer) > 60 Est GFR (Non-Af Amer) > 60 Random Glucose 88 Hemoglobin A1c Calcium 8.3 L Phosphorus 3.1 Magnesium 2.2 Total Bilirubin 0.4 AST 56 H ALT 67 H Alkaline Phosphatase 69 Troponin I < 0.01 Total Protein 5.8 Albumin 3.1 Globulin 2.7 Albumin/Globulin Ratio 1.2 Triglycerides 126 Cholesterol 122 L LDL Cholesterol Direct 77 HDL Cholesterol 23 L Free T4 TSH 3rd Generation 10/10/18 10/10/18 10/10/18 07:00 07:00 07:00 WBC RBC Hgb Hct MCV MCH MCHC RDW Plt Count MPV Neut % (Auto) Lymph % (Auto) Upson % (Auto) Eos % (Auto) Baso % (Auto) Lymph # (Auto) Upson # (Auto) Eos # (Auto) Baso # (Auto) Absolute Neuts (auto) Sodium Potassium Chloride Carbon Dioxide Anion Gap BUN Creatinine Est GFR ( Amer) Est GFR (Non-Af Amer) Random Glucose Hemoglobin A1c 5.6 Calcium Phosphorus Magnesium Total Bilirubin AST ALT Alkaline Phosphatase Troponin I Total Protein Albumin Globulin Albumin/Globulin Ratio Triglycerides Cholesterol LDL Cholesterol Direct HDL Cholesterol Free T4 1.28 TSH 3rd Generation 0.31 L Attending/Attestation - Attestation I have personally seen and examined this patient.: Yes I have fully participated in the care of the patient.: Yes I have reviewed all pertinent clinical information: Yes Notes (Text): This is an addendum to GI consult report dictated by the GI Fellow. The patient was seen and examined earlier. Medical records, lab studies, imagings were reviewed. Last 24 hours events reviewed. Agreed with the above treatment plan as outlined in GI Fellow 's notes with the addition of the following Patient has significant tenderness in the upper abdominal area Dilated common bile duct status post lap marc Imaging studies were reviewed Would consider repeating the CT of the pancreatic protocol after review of the [facility] Imaging studies were reviewed We will review we did review the records from bariatric surgeon and also from her primary 10/10/18 22:49
--- NOTE | 2018-10-10 15:58 | CON ---
DATE OF CONSULTATION: 10/10/2018 CARDIOLOGY CONSULTATION HISTORY: The patient is a 48-year-old woman with no cardiac risk factors, who presents with abdominal pain and left-sided chest pain. The patient is status post bariatric surgery last year. Since then, she has had multiple diffuse body aches and complaints. She apparently underwent a stress test a year ago prior to her surgery, which was said to be unremarkable. She denies shortness of breath. She does not smoke. No hypertension. No diabetes mellitus. REVIEW OF SYSTEMS: Review of systems is all negative for cardiac symptoms other than occasional left-sided chest pain. PHYSICAL EXAMINATION: VITAL SIGNS: Blood pressure 107/73, the heart rate is in the 50s. Normal sinus rhythm. NECK: Negative JVD. LUNGS: Without rales. CARDIAC: Heart rate S1, S2. EXTREMITIES: Without edema. EKG shows normal sinus rhythm with no acute changes. LABORATORY DATA: Troponins are negative x4. BUN and creatinine are unremarkable. The hemoglobin is 11.1. IMPRESSION: 1. Abdominal pain. 2. Intermittent left-sided chest pain. 3. No evidence for acute coronary syndrome. 4. Anemia. 5. History of obesity. 6. Intermittent abdominal pain. PLAN: Given these findings, there is no evidence for acute coronary syndrome with the investigation to abdominal cause of her diffuse body aches. From a cardiac perspective, we will DC telemetry today. The patient should undergo a repeat stress test once her abdominal symptoms have all resolved. Hunter Boyer MD
[2018-10-11] MEDS: Pantoprazole 40 mg EC Tab PO SCH (05:49)
[2018-10-11 07:08] LABS: BASO # 0.02 {null, K/mm3} (0.0-2.0); BASO % 0.5 % (0.0-3.0); EOS # 0.4 (0.0-0.7); EOS % 9.5 % (1.5-5.0); HEMOGLOBIN 12.1 g/dL (12.0-16.0); LYMPH # 1.7 (1.2-3.4); LYMPH % 39.8 % (22.0-35.0); MEAN CELL VOLUME 86.3 fl (80.0-105.0); MEAN CORPUSCULAR HEMOGLOBIN 27.1 pg (25.0-35.0); MEAN CORPUSCULAR HGB CONC 31.4 g/dl (31.0-37.0); MEAN PLATELET VOLUME 11.6 fl (7.0-11.0); MONO # 0.5 (0.1-0.6); MONO % 10.5 % (1.0-6.0); RBC 4.46 {null, 10^6/uL} (3.5-6.1); RED CELL DISTRIBUTION WIDTH 13.8 % (11.5-14.5); WHITE BLOOD COUNT 4.3 {null, 10^3/uL} (4.5-11.0)
[2018-10-11 07:48] LABS: ALB/GLOB RATIO 1.2 (1.1-1.8); ALBUMIN 3.4 g/dL (3.0-4.8); ALT/SGPT 68 U/L (7-56); AST/SGOT 68 U/L (14-36); BLOOD UREA NITROGEN 3 mg/dL (7-21); CALCIUM 8.9 mg/dL (8.4-10.5); GFR NON-AFRICAN AMERICAN > 60
--- NOTE | 2018-10-11 11:28 | CP.PCM.PN ---
<Laurie Gale - Last Filed: 10/11/18 11:31> Subjective - Date & Time of Evaluation Date of Evaluation: 10/11/18 Time of Evaluation: 10:20 - Subjective Subjective: GI progress note for Dr. Smart-Laurie Gale, PGY-2 Pt seen/examined with Dr. Smart Pt reports abdominal pain much improved, tolerating clear liquid diet. Liss N & V. Spoke with Dr. Herman Handley (pts bariatric surgeon) who recommended CT scan for evaluation of SMV thrombosis s/p gastric sleeve, pt also cleared for MRCP if required. Objective - Vital Signs/Intake and Output Vital Signs (last 24 hours): Temp Pulse Resp BP Pulse Ox 98 F 55 L 20 108/75 97 10/11/18 06:00 10/11/18 06:00 10/11/18 06:00 10/11/18 06:00 10/11/18 10:27 Intake and Output: 10/11/18 10/11/18 06:59 18:59 Intake Total 240 Balance 240 - Medications Medications: Current Medications Heparin Sodium (Porcine) (Heparin) 5,000 units SC Q8 [facility]; Protocol Last Admin: 10/11/18 05:48 Dose: 5,000 units Ibuprofen (Motrin Oral Susp) 100 mg PO Q6H PRN PRN Reason: Pain, moderate (4-7) Last Admin: 10/10/18 17:45 Dose: 100 mg Ondansetron HCl (Zofran Inj) 4 mg IVP Q4H PRN PRN Reason: Nausea/Vomiting Pantoprazole Sodium (Protonix Ec Tab) 40 mg PO 0600 [facility] Last Admin: 10/11/18 05:49 Dose: 40 mg - Labs Labs: 10/11/18 06:40 10/11/18 06:40 PT 13.0 SECONDS (9.4-12.5) H 10/09/18 07:45 INR 1.15 10/09/18 07:45 APTT 31.1 Seconds (26.9-38.3) 10/09/18 07:45 - Constitutional Appears: Non-toxic, No Acute Distress - Head Exam Head Exam: ATRAUMATIC, NORMAL INSPECTION, NORMOCEPHALIC - Eye Exam Eye Exam: EOMI, Normal appearance - ENT Exam ENT Exam: Mucous Membranes Moist, Normal Exam - Neck Exam Neck Exam: Full ROM - Respiratory Exam Respiratory Exam: NORMAL BREATHING PATTERN - Cardiovascular Exam Cardiovascular Exam: REGULAR RHYTHM - GI/Abdominal Exam GI & Abdominal Exam: Soft. absent: Distended (obese), Firm, Guarding, Tenderness - Extremities Exam Extremities Exam: Normal Inspection - Neurological Exam Neurological Exam: Alert, Awake, CN II-XII Intact, Oriented x3 - Psychiatric Exam Psychiatric exam: Normal Affect, Normal Mood - Skin Skin Exam: Dry, Intact, Normal Color, Warm Assessment and Plan - Assessment and Plan (Free Text) Assessment: 48 year old female with history of obesity, hyperlipidemia, and recent gastric bypass surgery 2 weeks ago presenting with chief complaint of left sided abdominal pain -improved Plan: GB U/S with CBD 8mm, s/p cholecystectomy FU CT ab/pelvis with pancreatic protocol to evaluate for SMV thrombosis s/p gastric sleeve Cont IVF Ok to continue CLD Monitor LFTs FU BLAINE, Anti-Smooth, anti-mitochondrial, IGG, hepatitis panel, IGG4, and lipid panel Will follow D/W Dr. Smart <Joselyn Smart V - Last Filed: 10/11/18 21:48> Objective - Vital Signs/Intake and Output Vital Signs (last 24 hours): Temp Pulse Resp BP Pulse Ox 99 F 56 L 18 113/76 96 10/11/18 21:30 10/11/18 21:30 10/11/18 21:30 10/11/18 21:30 10/11/18 21:30 Intake and Output: 10/11/18 10/12/18 18:59 06:59 Intake Total 700 780 Balance 700 780 - Medications Medications: Current Medications Heparin Sodium (Porcine) (Heparin) 5,000 units SC Q8 [facility]; Protocol Last Admin: 10/11/18 21:32 Dose: 5,000 units Sodium Chloride (Sodium Chloride 0.9%) 1,000 mls @ 100 mls/hr IV .Q10H [facility] Ibuprofen (Motrin Oral Susp) 100 mg PO Q6H PRN PRN Reason: Pain, moderate (4-7) Last Admin: 10/10/18 17:45 Dose: 100 mg Ondansetron HCl (Zofran Inj) 4 mg IVP Q4H PRN PRN Reason: Nausea/Vomiting Pantoprazole Sodium (Protonix Ec Tab) 40 mg PO 0600 [facility] Last Admin: 10/11/18 05:49 Dose: 40 mg - Labs Labs: 10/11/18 06:40 10/11/18 06:40 PT 13.0 SECONDS (9.4-12.5) H 10/09/18 07:45 INR 1.15 10/09/18 07:45 APTT 31.1 Seconds (26.9-38.3) 10/09/18 07:45 Attending/Attestation - Attestation I have personally seen and examined this patient.: Yes I have fully participated in the care of the patient.: Yes I have reviewed all pertinent clinical information, including history, physical exam and plan: Yes Notes (Text): This is an addendum to GI progress report dictated by the Resident. The patient was seen and examined earlier. Medical records, lab studies, imagings were reviewed. Last 24 hours events reviewed. Agreed with the above treatment plan as outlined in Resident 's notes with the addition of the following Follow-up with a CT of the pancreatic protocol discussed with the bariatric surgeon Continue PPI We will consider MRCP to further evaluate the dilated CBD after reviewing the pancreatic protocol CT Thank you very much for allowing us to participate in the care of the patient 10/11/18 21:44
[2018-10-11] MEDS ORDERED: Barium Sulfate Susp 2.1% w/v, 2.0% w/w 450 mL Bottle PO ONE (11:46)
[2018-10-11 12:11] LABS: HEPATITIS B SURFACE AG Negative (NEGATIVE)
[2018-10-11 12:17] LABS: HEPATITIS A IGM NEGATIVE (NEGATIVE); HEPATITIS B CORE AB NEGATIVE (NEGATIVE)
[2018-10-11 12:29] LABS: HEPATITIS C ANTIBODY NEGATIVE (NEGATIVE)
--- NOTE | 2018-10-11 12:45 | PN ---
DATE: 10/11/2018 SUBJECTIVE: The patient is on Med-Surg floor. She is comfortable. No shortness of breath. No chest pain. PHYSICAL EXAMINATION: VITAL SIGNS: Blood pressure 108/75, heart rate is in the 50s. NECK: Negative JVD. LUNGS: Without rales. HEART: Reveal S1, S2. EXTREMITIES: Without edema. LABORATORY DATA: Hemoglobin is 12.1. Chemistries, BUN and creatinine is unremarkable. IMPRESSION: 1. Resolution of chest pain. 2. No evidence for acute coronary syndrome. 3. Abdominal pain. 4. Status post gastric sleeve surgery. PLAN: Given these findings, there are no plans for endoscopy according to GI. She is being worked up by GI. Her cardiac status is stable. Hunter Boyer MD
--- NOTE | 2018-10-11 16:31 | CP.PCM.PN ---
<Conner Parker - Last Filed: 10/11/18 16:31> Subjective - Date & Time of Evaluation Date of Evaluation: 10/11/18 Time of Evaluation: 07:00 - Subjective Subjective: Conner Parker DO, PGY-1 Hospitalist Progress Note for Dr. Fried Patient was seen and examined at bedside this AM. She reports continued abdomina l pain this AM near the surgical site but states it is improving. She is tolerating liquid diet well without nausea/vomiting. Objective - Vital Signs/Intake and Output Vital Signs (last 24 hours): Temp Pulse Resp BP Pulse Ox 98 F 55 L 20 108/75 97 10/11/18 06:00 10/11/18 06:00 10/11/18 06:00 10/11/18 06:00 10/11/18 10:27 Intake and Output: 10/11/18 10/11/18 06:59 18:59 Intake Total 240 700 Balance 240 700 - Medications Medications: Current Medications Heparin Sodium (Porcine) (Heparin) 5,000 units SC Q8 [facility]; Protocol Last Admin: 10/11/18 13:33 Dose: 5,000 units Ibuprofen (Motrin Oral Susp) 100 mg PO Q6H PRN PRN Reason: Pain, moderate (4-7) Last Admin: 10/10/18 17:45 Dose: 100 mg Ondansetron HCl (Zofran Inj) 4 mg IVP Q4H PRN PRN Reason: Nausea/Vomiting Pantoprazole Sodium (Protonix Ec Tab) 40 mg PO 0600 [facility] Last Admin: 10/11/18 05:49 Dose: 40 mg - Labs Labs: 10/11/18 06:40 10/11/18 06:40 PT 13.0 SECONDS (9.4-12.5) H 10/09/18 07:45 INR 1.15 10/09/18 07:45 APTT 31.1 Seconds (26.9-38.3) 10/09/18 07:45 - Constitutional Appears: Non-toxic, No Acute Distress - Head Exam Head Exam: ATRAUMATIC, NORMOCEPHALIC - Eye Exam Eye Exam: EOMI, PERRL - ENT Exam ENT Exam: Mucous Membranes Moist - Neck Exam Neck Exam: Full ROM, Normal Inspection - Respiratory Exam Respiratory Exam: Clear to Ausculation Bilateral, NORMAL BREATHING PATTERN. absent: Rales, Rhonchi, Wheezes - Cardiovascular Exam Cardiovascular Exam: REGULAR RHYTHM, RRR, +S1, +S2. absent: Gallop, Rubs, Murmur - GI/Abdominal Exam GI & Abdominal Exam: Soft, Tenderness (greatest LUQ near surgical sites). absent: Guarding, Rebound Additional comments: abdominal laparoscopy scars present from recent surgery, all clean, dry, intact - Extremities Exam Extremities Exam: Full ROM. absent: Pedal Edema - Back Exam Back Exam: NORMAL INSPECTION - Neurological Exam Neurological Exam: Alert, Awake, Oriented x3 - Psychiatric Exam Psychiatric exam: Normal Affect, Normal Mood - Skin Skin Exam: Dry, Intact, Warm Assessment and Plan - Assessment and Plan (Free Text) Assessment: 48 yo F with PMH of obesity (s/p gastric bypass surgery 2 weeks ago) and HLD presented with worsening L sided abdominal pain. Plan: L-sided abdominal pain Suspect most likely 2/2 post-op pain from recent gastric bypass CTAP showed no evidence of pancreatic infiltration, moderate dilation of CBD Suspect CTAP findings are most likely 2/2 recent surgery as well May continue motrin, zofran PRN Per GI recs, patient should have pancreas CT as there was a concern for possible pancreatitis on prior CT imaging GI following, all recs appreciated Possible atypical CP, ACS r/o Trop negative x 3 TSH low but free T4 WNL Lipid panel with low HDL but no other concerning findings Hgb A1c WNL Per cardiology, telemetry was discontinued, may undergo stress test as outpa tient if needed HLD Was not on any home meds Encourage patient to exercise to help raise HDL DVT/GI PPX: SCD/Protonix Full Code HHD Monitor on med/surg Patient seen, examined with, and plan discussed with my attending Dr. Corky Parker D.O. IM Resident PGY-1 Pager: [phone] <Michell Fried - Last Filed: 10/12/18 15:50> Objective - Vital Signs/Intake and Output Vital Signs (last 24 hours): Temp Pulse Resp BP Pulse Ox 98.7 F 57 L 18 102/71 98 10/11/18 16:47 10/11/18 16:47 10/11/18 16:47 10/11/18 16:47 10/11/18 16:47 Intake and Output: 10/11/18 10/11/18 06:59 18:59 Intake Total 240 700 Balance 240 700 - Medications Medications: Current Medications Heparin Sodium (Porcine) (Heparin) 5,000 units SC Q8 [facility]; Protocol Last Admin: 10/11/18 13:33 Dose: 5,000 units Sodium Chloride (Sodium Chloride 0.9%) 1,000 mls @ 100 mls/hr IV .Q10H [facility] Ibuprofen (Motrin Oral Susp) 100 mg PO Q6H PRN PRN Reason: Pain, moderate (4-7) Last Admin: 10/10/18 17:45 Dose: 100 mg Ondansetron HCl (Zofran Inj) 4 mg IVP Q4H PRN PRN Reason: Nausea/Vomiting Pantoprazole Sodium (Protonix Ec Tab) 40 mg PO 0600 [facility] Last Admin: 10/11/18 05:49 Dose: 40 mg - Labs Labs: 10/11/18 06:40 10/11/18 06:40 PT 13.0 SECONDS (9.4-12.5) H 10/09/18 07:45 INR 1.15 10/09/18 07:45 APTT 31.1 Seconds (26.9-38.3) 10/09/18 07:45 Attending/Attestation - Attestation I have personally seen and examined this patient.: Yes I have fully participated in the care of the patient.: Yes I have reviewed all pertinent clinical information, including history, physical exam and plan: Yes Notes (Text): 10/12/18 15:44 Attending note: Patient seen and examined with resident . Patient is still complaining of left-sided abdominal pain . Poorly tolerating liquid diet . Currently on IV fluids . complaining of nausea on and off. Patient is a 48-year-old female past medical history significant bradycardia and prediabetes the presented to the emergency room with left-sided abdominal pain. 1. Left upper quadrant abdominal pain. Nausea. Elevated lipase at 812. Dilated common bile duct. GI recommendations appreciated. Continue with liquid diet. Abdominal ultrasound showed re-identified dilated common bile duct in the setting of cholecystectomy, echogenic liver may be seen in the setting of hepatic parenchymal disease or fatty infiltration. CT abd/pelvis from satellite ED showed no evidence of pancreatic infiltration; mosaic pattern of enhancement of the liver parenchyma; limited assessment of the hepatic veins and portal vein due to multiple mixing of contrast, likely related to bolus timing, but it appear grossly patent; status post gastric sleeve procedure, no bowel obstruction, normal appendix; moderate dilatation of the common bile duct and mild intrahepatic biliary duct dilatation; the degree of biliary ductal dilatation appears mildly greater than expected for post cholecystectomy changes, although it may still represent post surgical change. CT pancreatic protocol ordered to rule out SMV thrombosis. 2. Atypical chest pain. resolved. troponins negative .cardiology evaluation appreciated 3. S/P gastric sleeve. Patient advised that she will need to follow up with her surgeon on discharge. Continue with liquid diet. 4. GI/DVT prophylaxis. Protonix/heparin. We will follow-up with GI closely. 10/12/18 15:48
[2018-10-11] MEDS ORDERED: Sodium Chloride 0.9% 1,000 ML IV SCH (17:45)
[2018-10-12] MEDS: Pantoprazole 40 mg EC Tab PO SCH (05:22)
[2018-10-12 07:05] LABS: BASO # 0.02 {null, K/mm3} (0.0-2.0); BASO % 0.5 % (0.0-3.0); EOS # 0.4 (0.0-0.7); EOS % 9.4 % (1.5-5.0); HEMOGLOBIN 12.5 g/dL (12.0-16.0); LYMPH # 1.7 (1.2-3.4); LYMPH % 40.8 % (22.0-35.0); MEAN CELL VOLUME 85.9 fl (80.0-105.0); MEAN CORPUSCULAR HEMOGLOBIN 27.1 pg (25.0-35.0); MEAN CORPUSCULAR HGB CONC 31.6 g/dl (31.0-37.0); MEAN PLATELET VOLUME 11.5 fl (7.0-11.0); MONO # 0.4 (0.1-0.6); MONO % 10.4 % (1.0-6.0); RBC 4.61 {null, 10^6/uL} (3.5-6.1); RED CELL DISTRIBUTION WIDTH 13.9 % (11.5-14.5)
[2018-10-12 07:22] LABS: ALB/GLOB RATIO 1.2 (1.1-1.8); ALBUMIN 3.5 g/dL (3.0-4.8); ALT/SGPT 102 U/L (7-56); AST/SGOT 86 U/L (14-36); BLOOD UREA NITROGEN 4 mg/dL (7-21); CALCIUM 9.2 mg/dL (8.4-10.5); GFR NON-AFRICAN AMERICAN > 60
--- NOTE | 2018-10-12 07:23 | CP.PCM.PN ---
<Lyndsay Werner L - Last Filed: 10/12/18 11:24> Subjective - Date & Time of Evaluation Date of Evaluation: 10/12/18 Time of Evaluation: 07:19 - Subjective Subjective: Resident Progress Note for Hospitalist Service Patient examined at bedside. No acute events overnight. Patient admits to abdominal pain, unchanged from prior. She rates severity level +6/10 at rest. Also admits to some nausea with meal. Denies fevers, chills, chest pain, shortness of breath, diarrhea, dysuria. Plan for MRCP today. Objective - Vital Signs/Intake and Output Vital Signs (last 24 hours): Temp Pulse Resp BP Pulse Ox 98.3 F 60 20 114/78 96 10/12/18 06:00 10/12/18 06:00 10/12/18 06:00 10/12/18 06:00 10/12/18 00:01 Intake and Output: 10/12/18 10/12/18 06:59 18:59 Intake Total 1820 Balance 1820 - Medications Medications: Current Medications Heparin Sodium (Porcine) (Heparin) 5,000 units SC Q8 [facility]; Protocol Last Admin: 10/12/18 05:21 Dose: 5,000 units Sodium Chloride (Sodium Chloride 0.9%) 1,000 mls @ 100 mls/hr IV .Q10H [facility] Last Admin: 10/11/18 21:50 Dose: 100 mls/hr Ibuprofen (Motrin Oral Susp) 100 mg PO Q6H PRN PRN Reason: Pain, moderate (4-7) Last Admin: 10/12/18 00:18 Dose: 100 mg Ondansetron HCl (Zofran Inj) 4 mg IVP Q4H PRN PRN Reason: Nausea/Vomiting Pantoprazole Sodium (Protonix Ec Tab) 40 mg PO 0600 [facility] Last Admin: 10/12/18 05:22 Dose: 40 mg - Labs Labs: 10/11/18 06:40 10/11/18 06:40 PT 13.0 SECONDS (9.4-12.5) H 10/09/18 07:45 INR 1.15 10/09/18 07:45 APTT 31.1 Seconds (26.9-38.3) 10/09/18 07:45 - Additional Findings Additional findings: - Constitutional Appears: Non-toxic, No Acute Distress - Head Exam Head Exam: ATRAUMATIC, NORMOCEPHALIC - Eye Exam Eye Exam: EOMI, Normal appearance, PERRL - ENT Exam ENT Exam: Mucous Membranes Moist - Neck Exam Neck exam: Positive for: Full Rom. Negative for: Lymphadenopathy, Tenderness - Respiratory Exam Respiratory Exam: Chest Wall Tenderness, Clear to Auscultation Bilateral, NORMAL BREATHING PATTERN. absent: Accessory Muscle Use, Rales, Rhonchi, Wheezes, Respiratory Distress - Cardiovascular Exam Cardiovascular Exam: Bradycardia, REGULAR RHYTHM, +S1, +S2. absent: Systolic Murmur - GI/Abdominal Exam GI & Abdominal Exam: Normal Bowel Sounds, Soft, Tenderness. absent: Distended (LUQ), Firm, Guarding, Rebound, Rigid - Extremities Exam Extremities exam: Positive for: normal capillary refill, pedal pulses present. Negative for: pedal edema, tenderness - Neurological Exam Neurological exam: Alert, CN II-XII Intact, Oriented x3 - Psychiatric Exam Psychiatric exam: Normal Affect, Normal Mood - Skin Skin Exam: Dry, Intact, Normal Color, Warm Assessment and Plan - Assessment and Plan (Free Text) Assessment: Patient is a 48 year old female with past medical history of obesity, hyperlipidemia, and recent gastric bypass surgery 2 weeks ago presenting with chief complaint of left sided abdominal pain. Plan: Abdominal pain - CT abd pelvis shows no evidence of pancreatic infiltration, moderate dilatation of CBD - abdominal ultrasound shows CBD dilatation - Pancreas CT shows no acute findings - Hepatitis panel negative - Lipase 812 - Transaminitis resolving - GI consulted. Appreciate recs. - Zofran PRN - Morphine PRN for severe pain - NS @ 100 ccs/hr - followup MRCP Atypical chest pain with bradycardia - TARYN score 0 - Troponin negx3 - EKG shows sinus bradycardia - TSH low, free T4 within normal limits - lipid panel unremarkable - Hgba1c 5.6 - Cardiology consulted. Recs appreciated. PPX - Heparin 5000 units SC Q8 - Protonix 40 mg PO daily Case discussed with Dr. Corky Werner PGY-1 <Michell Fried - Last Filed: 10/12/18 15:52> Objective - Vital Signs/Intake and Output Vital Signs (last 24 hours): Temp Pulse Resp BP Pulse Ox 98.3 F 60 18 114/78 96 10/12/18 06:00 10/12/18 06:00 10/12/18 06:00 10/12/18 06:00 10/12/18 06:00 Intake and Output: 10/12/18 10/12/18 06:59 18:59 Intake Total 1820 380 Output Total 2 Balance 1820 378 - Medications Medications: Current Medications Heparin Sodium (Porcine) (Heparin) 5,000 units SC Q8 [facility]; Protocol Last Admin: 10/12/18 05:21 Dose: 5,000 units Sodium Chloride (Sodium Chloride 0.9%) 1,000 mls @ 100 mls/hr IV .Q10H [facility] Last Admin: 10/11/18 21:50 Dose: 100 mls/hr Ibuprofen (Motrin Oral Susp) 100 mg PO Q6H PRN PRN Reason: Pain, moderate (4-7) Last Admin: 10/12/18 00:18 Dose: 100 mg Morphine Sulfate (Morphine) 2 mg IVP Q6H PRN PRN Reason: Pain, severe (8-10) Ondansetron HCl (Zofran Inj) 4 mg IVP Q4H PRN PRN Reason: Nausea/Vomiting Pantoprazole Sodium (Protonix Ec Tab) 40 mg PO 0600 [facility] Last Admin: 10/12/18 05:22 Dose: 40 mg - Labs Labs: 10/12/18 06:40 10/12/18 06:40 PT 13.0 SECONDS (9.4-12.5) H 10/09/18 07:45 INR 1.15 10/09/18 07:45 APTT 31.1 Seconds (26.9-38.3) 10/09/18 07:45 Attending/Attestation - Attestation I have personally seen and examined this patient.: Yes I have fully participated in the care of the patient.: Yes I have reviewed all pertinent clinical information, including history, physical exam and plan: Yes Notes (Text): 10/12/18 15:51 Attending note: Patient seen and examined with resident. Patient is still complaining of left-sided abdominal pain . Poorly tolerating liquid diet . Currently on IV fluids . complaining of nausea on and off. Patient is a 48-year-old female past medical history significant bradycardia and prediabetes the presented to the emergency room with left-sided abdominal pain. 1. Left upper quadrant abdominal pain. Nausea. Elevated lipase at 812. Dilated common bile duct. GI recommendations appreciated. Continue with liquid diet. Abdominal ultrasound showed re-identified dilated common bile duct in the setting of cholecystectomy, echogenic liver may be seen in the setting of hepatic parenchymal disease or fatty infiltration. CT abd/pelvis from satellite ED showed no evidence of pancreatic infiltration; mosaic pattern of enhancement of the liver parenchyma; limited assessment of the hepatic veins and portal vein due to multiple mixing of contrast, likely related to bolus timing, but it appear grossly patent; status post gastric sleeve procedure, no bowel obstruction, normal appendix; moderate dilatation of the common bile duct and mild intrahepatic biliary duct dilatation; the degree of biliary ductal dilatation appears mildly greater than expected for post cho lecystectomy changes, although it may still represent post surgical change. CT pancreatic protocol is negative for acute pancreatitis or SMV thrombosis . MRCP ordered. 2. Atypical chest pain. resolved. troponins negative .cardiology evaluation appreciated 3. S/P gastric sleeve. Patient advised that she will need to follow up with her surgeon on discharge. Continue with liquid diet. 4. GI/DVT prophylaxis. Protonix/heparin. Dietitian evaluation appreciated. Advance diet per gastric sleeve protocol. We will follow-up with GI closely. Upon discharge the patient will follow up with PMD Dr. Patrice Rico.
[2018-10-12 07:33] VITALS: RESP 18
--- NOTE | 2018-10-12 08:45 | CT ---
Date of service: 10/11/2018 PROCEDURE: CT Abdomen and Pelvis with contrast HISTORY: r/o SMV thrombosis s/p gastric sleeve COMPARISON: None. TECHNIQUE: Contrast dose: 150 cc of Omni 350 Radiation dose: Total exam DLP = 2162.3 mGy-cm. This CT exam was performed using one or more of the following dose reduction techniques: Automated exposure control, adjustment of the mA and/or kV according to patient size, and/or use of iterative reconstruction technique. FINDINGS: LOWER THORAX: Unremarkable. LIVER: Unremarkable. No gross lesion or ductal dilatation. GALLBLADDER AND BILE DUCTS: Gallbladder removed. Common duct dilated PANCREAS: Unremarkable. No gross lesion or ductal dilatation. SPLEEN: Unremarkable. ADRENALS: Unremarkable. No mass. KIDNEYS AND URETERS: Unremarkable. No hydronephrosis. No solid mass. VASCULATURE: Unremarkable. No aortic aneurysm. No aortic atherosclerotic calcification or mural plaque present. There is no evidence of venous thrombosis. BOWEL: Unremarkable. No obstruction. No gross mural thickening. There is a suture line in the stomach consistent with a gastric sleeve procedure. There are no complicating factors. APPENDIX: Normal appendix. PERITONEUM: Unremarkable. No free fluid. No free air. LYMPH NODES: Unremarkable. No enlarged lymph nodes. BLADDER: Unremarkable. REPRODUCTIVE: Unremarkable. BONES: No acute fracture. OTHER FINDINGS: None. IMPRESSION: No acute intra-abdominal findings
[2018-10-12] MEDS ORDERED: Morphine 2 mg/ml ISec IVP PRN (10:17)
--- NOTE | 2018-10-12 12:07 | CP.PCM.PN ---
<Laurie Gale - Last Filed: 10/12/18 12:05> Subjective - Date & Time of Evaluation Date of Evaluation: 10/12/18 Time of Evaluation: 09:40 - Subjective Subjective: GI progress note for Dr. Smart-Laurie Gale, PGY-2 Pt seen/examined with Dr. Smart Pt reports abdominal pain much resolved. Tolerating clear liquid diet. Reports some mild nausea with PO intake. Denies emesis. No other complaints at this time. Objective - Vital Signs/Intake and Output Vital Signs (last 24 hours): Temp Pulse Resp BP Pulse Ox 98.3 F 60 18 114/78 96 10/12/18 06:00 10/12/18 06:00 10/12/18 06:00 10/12/18 06:00 10/12/18 06:00 Intake and Output: 10/12/18 10/12/18 06:59 18:59 Intake Total 1820 120 Balance 1820 120 - Medications Medications: Current Medications Heparin Sodium (Porcine) (Heparin) 5,000 units SC Q8 [facility]; Protocol Last Admin: 10/12/18 05:21 Dose: 5,000 units Sodium Chloride (Sodium Chloride 0.9%) 1,000 mls @ 100 mls/hr IV .Q10H [facility] Last Admin: 10/11/18 21:50 Dose: 100 mls/hr Ibuprofen (Motrin Oral Susp) 100 mg PO Q6H PRN PRN Reason: Pain, moderate (4-7) Last Admin: 10/12/18 00:18 Dose: 100 mg Morphine Sulfate (Morphine) 2 mg IVP Q6H PRN PRN Reason: Pain, severe (8-10) Ondansetron HCl (Zofran Inj) 4 mg IVP Q4H PRN PRN Reason: Nausea/Vomiting Pantoprazole Sodium (Protonix Ec Tab) 40 mg PO 0600 [facility] Last Admin: 10/12/18 05:22 Dose: 40 mg - Labs Labs: 10/12/18 06:40 10/12/18 06:40 PT 13.0 SECONDS (9.4-12.5) H 10/09/18 07:45 INR 1.15 10/09/18 07:45 APTT 31.1 Seconds (26.9-38.3) 10/09/18 07:45 - Constitutional Appears: Non-toxic, No Acute Distress - Head Exam Head Exam: ATRAUMATIC, NORMAL INSPECTION, NORMOCEPHALIC - Eye Exam Eye Exam: EOMI, Normal appearance - ENT Exam ENT Exam: Mucous Membranes Moist, Normal Exam - Neck Exam Neck Exam: Full ROM, Normal Inspection - Respiratory Exam Respiratory Exam: NORMAL BREATHING PATTERN - Cardiovascular Exam Cardiovascular Exam: REGULAR RHYTHM, +S1, +S2 - GI/Abdominal Exam GI & Abdominal Exam: Soft. absent: Distended (obese), Firm, Guarding, Rigid, Tenderness - Extremities Exam Extremities Exam: Normal Inspection - Neurological Exam Neurological Exam: Alert, Awake, CN II-XII Intact, Oriented x3 - Psychiatric Exam Psychiatric exam: Normal Affect, Normal Mood - Skin Skin Exam: Dry, Intact, Normal Color, Warm Assessment and Plan - Assessment and Plan (Free Text) Assessment: 48 year old female with history of obesity, hyperlipidemia, and recent gastric bypass surgery 2 weeks ago presenting with chief complaint of left sided abdominal pain -resolved Plan: CT A/P negative for SMV thrombosis FU MRCP Ok to continue CLD Monitor LFTs FU BLAINE, Anti-Smooth, anti-mitochondrial, IGG4, and lipid panel IGG WNL (969.9) Hepatitis panel negative Will follow D/W Dr. Smart <Joselyn Smart V - Last Filed: 10/12/18 22:39> Objective - Vital Signs/Intake and Output Vital Signs (last 24 hours): Temp Pulse Resp BP Pulse Ox 98.4 F 56 L 18 99/68 L 97 10/12/18 16:26 10/12/18 16:26 10/12/18 16:26 10/12/18 16:26 10/12/18 16:26 Intake and Output: 10/12/18 10/13/18 18:59 06:59 Intake Total 380 Output Total 2 Balance 378 - Labs Labs: 10/12/18 06:40 10/12/18 06:40 PT 13.0 SECONDS (9.4-12.5) H 10/09/18 07:45 INR 1.15 10/09/18 07:45 APTT 31.1 Seconds (26.9-38.3) 10/09/18 07:45 Attending/Attestation - Attestation I have personally seen and examined this patient.: Yes I have fully participated in the care of the patient.: Yes I have reviewed all pertinent clinical information, including history, physical exam and plan: Yes
--- NOTE | 2018-10-12 15:37 | MRI ---
Date of service: 10/12/2018 PROCEDURE: Magnetic Resonance Cholangiopancreatography HISTORY: COMPARISON: None available. TECHNIQUE: Multiplanar, multisequence MR images of the abdomen were obtained, including heavily T2 weighted MRCP images of the biliary system. Rotating maximum intensity projection images of the biliary system were generated. FINDINGS: MRCP: Dilated common bile duct up to approximately 13 mm. No filling defect identified. There is somewhat rapid but concentric tapering of the distal common bile duct. This raises suspicion of mass or stricture at the level of the ampulla. Further investigation should be considered.. LIVER: Normal contour. No mass. Mild hepatomegaly. The liver measures approximately 22 cm craniocaudal. No intrahepatic biliary ductal dilatation is appreciated. GALLBLADDER: Status post cholecystectomy. SPLEEN: Unremarkable. PANCREAS: Unremarkable. ADRENALS: Unremarkable. KIDNEYS: Unremarkable. AORTA: No aneurysm. ASCITES: None. OTHER FINDINGS: None. IMPRESSION: Dilated common bile duct without associated intrahepatic biliary dilatation. Rapid tapering of the distal common bile duct, although in a concentric fashion. This raises some suspicion of neoplasm or stricture. Further evaluation should be considered. Mild hepatomegaly. No evidence of choledocholithiasis.
[2018-10-12 16:27] VITALS: BP 99/68; PULSE 56; TEMP 98.4; O2SAT 97
== END 2018-10-12 18:51 | disposition home or self-care (01) | DRG 814 ==
LOC: ED 06:20 → ERH 08:45 → 2RNO 10:59 → 5RNO 10-10 14:47 → 5RSO 10-10 17:21
PROVIDERS: ADMIT Hospitalist; ATTEND Internal Medicine
DX: R10.12 Left upper quadrant pain (principal); R07.89 Other chest pain; K83.8 Other specified diseases of biliary tract; R00.1 Bradycardia, unspecified; D64.9 Anemia, unspecified; R74.8 Abnormal levels of other serum enzymes; E78.5 Hyperlipidemia, unspecified; E66.9 Obesity, unspecified; Z68.37 Body mass index [BMI] 37.0-37.9, adult; Z86.73 Personal history of transient ischemic attack (TIA), and cerebral infarction without residual deficits; Z98.84 Bariatric surgery status; Z87.891 Personal history of nicotine dependence